=== PATIENT | female | born 1950 | race Caucasian/White ===

== ENCOUNTER 2022-12-11 03:36 | Inpatient (IN) | payer OTHER ==
[~2022-12-11] VITALS: Ht 175.3 cm; Wt 161.0 kg
[2022-12-11 03:36] VITALS: BP_SYST 135
[2022-12-11 04:24] LABS: BASOPHILS % (AUTO) 0.2 % (0.0-2.0); HEMATOCRIT 29.3 % (36-48); HEMOGLOBIN 9.2 g/dL (12.0-16.0); LYMPHOCYTES # (AUTO) 0.5 K/uL (1.0-5.5); LYMPHOCYTES % (AUTO) 4.1 % (20.5-51.5); MEAN CORPUSCULAR HEMOGLOBIN 26 pg (27-31); MEAN CORPUSCULAR HGB CONC 31 % (32-36); MEAN CORPUSCULAR VOLUME 84 fL (79.0-98.0); MONOCYTES # (AUTO) 0.6 K/uL (0.0-1.0); MONOCYTES % (AUTO) 5.1 % (1.7-9.3); NEUTROPHILS # (AUTO) 10.5 K/uL (1.8-7.7); NEUTROPHILS % (AUTO) 90.6 % (40.0-70.0); PLATELET COUNT (AUTO) 261 K/uL (130-430); RED BLOOD CELL COUNT(AUTO) 3.51 MIL/uL (4.2-6.2); RED CELL DISTRIBUTION WIDTH 18.8 % (9.0-15.0); WHITE BLOOD COUNT (AUTO) 11.6 K/uL (4.8-10.8)
[2022-12-11 04:37] LABS: ANION GAP 10 (5-15); CALCIUM 8.3 mg/dL (8.4-11.0); CHLORIDE 103 mmol/L (98-107); CREATININE 0.91 mg/dL (0.55-1.30); GLUCOSE 140 mg/dL (70-99); UREA NITROGEN, BLOOD 14 mg/dL (8-21)
[2022-12-11] MEDS ORDERED: FUROSEMIDE 40 MG/4 ML VIAL IVP ONE (04:45)
[2022-12-11 04:47] LABS: BILIRUBIN,URINE NEGATIVE (NEGATIVE); BLOOD, URINE NEGATIVE (NEGATIVE); CLARITY/URINE CLEAR (CLEAR); COLOR,URINE YELLOW (YELLOW); GLUCOSE,URINE NEGATIVE (NEGATIVE); KETONES,URINE NEGATIVE (NEGATIVE); LEUKOCYTE ESTERASE ,URINE NEGATIVE (NEGATIVE); NITRITE, URINE NEGATIVE (NEGATIVE); PROTEIN URINE 1+ (NEGATIVE); UROBILINOGEN,URINE 0.2 (0.2-1.0)
[2022-12-11 04:56] LABS: ALANINE AMINOTRANSFERASE 8 U/L (12-78); ASPARTATE AMINOTRANSFERASE 15 U/L (10-37); TOTAL BILIRUBIN 1.3 mg/dL (0.0-1.0)
[2022-12-11] MEDS ORDERED: ENOXAPARIN SODIUM 120 MG/0.8 ML SYRINGE SUBCUT ONE (05:00)
[2022-12-11 05:03] LABS: BACTERIA,URINE None Seen /HPF (None Seen); RBC,URINE 0-3 /HPF (0-3); WBC,URINE 0-3 /HPF (0-3)
[2022-12-11] MEDS ORDERED: SACU1TAB PO (06:05)
[2022-12-11] MEDS ORDERED: DABI150C PO (06:05)
[2022-12-11] MEDS ORDERED: TRAZ150T77 PO (06:05)
[2022-12-11] MEDS ORDERED: POTA-197 PO (06:05)
[2022-12-11] MEDS ORDERED: FURO-149 PO (06:05)
[2022-12-11] MEDS ORDERED: MIRT-92 PO (06:05)
[2022-12-11] MEDS ORDERED: SERT25TA PO (06:06)
[2022-12-11] MEDS ORDERED: HYDR-3927 PO (06:06)
[2022-12-11 06:33] VITALS: BP_SYST 116
[2022-12-11 08:00] VITALS: BP_SYST 129
[2022-12-11] MEDS ORDERED: ZOLPIDEM TARTRATE 5 MG TABLET PO PRN (09:00)
[2022-12-11] MEDS ORDERED: ACETAMINOPHEN 325 MG TABLET PO PRN (09:00)
[2022-12-11] MEDS ORDERED: MAGNESIUM SULFATE 50 ML IV PRN (09:00)
[2022-12-11] MEDS ORDERED: LORazepam 2 MG/ML VIAL IVP PRN (09:00)
[2022-12-11] MEDS ORDERED: IPRATROPIUM/ALBUTEROL SULFATE 3 ML AMPUL.NEB (DUONEB) INH PRN (09:00)
[2022-12-11] MEDS ORDERED: DOCUSATE SODIUM 100 MG CAPSULE PO PRN (09:00)
[2022-12-11] MEDS ORDERED: MUPIROCIN 2% TOPICAL OINTMENT 22 GM NS PRN (09:00)
[2022-12-11] MEDS ORDERED: ONDANSETRON HCL 4 MG/2 ML VIAL IVP PRN (09:00)
[2022-12-11] MEDS: SACUBITRIL/VALSARTAN 24 MG-26 MG 1 TABLET PO SCH ×2 (09:17→21:26)
[2022-12-11] MEDS: FUROSEMIDE 40 MG TABLET PO SCH (09:18)
[2022-12-11] MEDS: DABIGATRAN ETEXILATE MESYLATE 75 MG CAPSULE PO SCH (09:19)
[2022-12-11] MEDS: SERTRALINE HCL 50 MG TABLET PO SCH (09:20)
[2022-12-11] MEDS: traMADol HCL HCL 50 MG TABLET (ULTRAM) PO PRN ×2 (10:29→16:58)
[2022-12-11] MEDS: cefTRIAXone 1 GM in D5W 50 ML IV SCH (12:23)
[2022-12-11 12:51] VITALS: BP_SYST 155
[2022-12-11 17:00] VITALS: BP_SYST 98
[2022-12-11 19:45] VITALS: BP_SYST 110
[2022-12-11] MEDS: MIRTAZAPINE 15 MG TABLET PO SCH (21:24)
[2022-12-11] MEDS: traZODone HCL 50 MG TABLET (DESYREL) PO SCH (21:24)
[2022-12-12 03:51] VITALS: BP_SYST 101
[2022-12-12 05:38] LABS: BASOPHILS % (AUTO) 0.6 % (0.0-2.0); EOSINOPHILS # (AUTO) 0.1 K/uL (0.0-0.4); EOSINOPHILS % (AUTO) 1.2 % (0.0-4.0); HEMATOCRIT 27.6 % (36-48); HEMOGLOBIN 8.8 g/dL (12.0-16.0); LYMPHOCYTES # (AUTO) 0.9 K/uL (1.0-5.5); LYMPHOCYTES % (AUTO) 12.5 % (20.5-51.5); MEAN CORPUSCULAR HEMOGLOBIN 27 pg (27-31); MEAN CORPUSCULAR HGB CONC 32 % (32-36); MEAN CORPUSCULAR VOLUME 83 fL (79.0-98.0); MONOCYTES % (AUTO) 12.8 % (1.7-9.3); NEUTROPHILS # (AUTO) 5.5 K/uL (1.8-7.7); NEUTROPHILS % (AUTO) 72.9 % (40.0-70.0); PLATELET COUNT (AUTO) 222 K/uL (130-430); RED BLOOD CELL COUNT(AUTO) 3.32 MIL/uL (4.2-6.2); RED CELL DISTRIBUTION WIDTH 18.5 % (9.0-15.0); WHITE BLOOD COUNT (AUTO) 7.6 K/uL (4.8-10.8)
[2022-12-12 05:44] LABS: BARBITURATE, URINE NEGATIVE (NEG <=200); BENZODIAZEPINE, URINE NEGATIVE (NEG <=150); COCAINE, URINE NEGATIVE (NEG <=150); METHAMPHETAMINES SCREEN,URINE NEGATIVE (NEG <=500); PHENCYCLIDINE SCREEN,URINE NEGATIVE (NEG <=25); URINE AMPHETAMINE NEGATIVE (NEG <=500); URINE METHADONE NEGATIVE (NEG <=200); URINE OXYCODONE SCREEN NEGATIVE (NEG <=100); URINE PROPOXYPHENE SCREEN NEGATIVE (NEG <=300)
[2022-12-12 05:46] LABS: CANNABINOID, URINE POSITIVE (NEG <=50); OPIATE, URINE POSITIVE (NEG <=100); UR TRICYCLIC ANTIDEPRESSANTS NEGATIVE (NEG <=300)
[2022-12-12 06:03] LABS: ANION GAP 6 (5-15); CALCIUM 8.1 mg/dL (8.4-11.0); CHLORIDE 103 mmol/L (98-107); CREATININE 1.01 mg/dL (0.55-1.30); GLUCOSE 107 mg/dL (70-99); UREA NITROGEN, BLOOD 19 mg/dL (8-21)
[2022-12-12 06:23] LABS: ALANINE AMINOTRANSFERASE 10 U/L (12-78); ALBUMIN 2.6 g/dL (3.4-4.8); ASPARTATE AMINOTRANSFERASE 18 U/L (10-37); CHOLESTEROL 108 mg/dL (<200); HDL CHOLESTEROL 50 mg/dL (>55); TOTAL BILIRUBIN 1.1 mg/dL (0.0-1.0); TRIGLYCERIDES 50 mg/dL (30-150)
[2022-12-12 07:55] VITALS: BP_SYST 135
[2022-12-12] MEDS: SACUBITRIL/VALSARTAN 24 MG-26 MG 1 TABLET PO SCH ×2 (08:39→20:48)
[2022-12-12] MEDS: FUROSEMIDE 40 MG TABLET PO SCH ×2 (08:40→20:46)
[2022-12-12] MEDS: DABIGATRAN ETEXILATE MESYLATE 75 MG CAPSULE PO SCH (08:42)
[2022-12-12] MEDS: SERTRALINE HCL 50 MG TABLET PO SCH (09:00)
[2022-12-12] MEDS: POTASSIUM CHLORIDE 20 MEQ TAB.PRT.SR PO PRN ×2 (09:01→20:47)
[2022-12-12] MEDS: traMADol HCL HCL 50 MG TABLET (ULTRAM) PO PRN ×2 (09:19→22:24)
[2022-12-12] MEDS ORDERED: ALBMDI INH (09:25)
[2022-12-12] MEDS ORDERED: CEPH250C PO (09:25)
[2022-12-12] MEDS ORDERED: FURO-149 PO (09:53)
[2022-12-12 10:07] VITALS: BP_SYST 136
[2022-12-12] MEDS: cefTRIAXone 1 GM in D5W 50 ML IV SCH (11:56)
[2022-12-12 12:00] VITALS: BP_SYST 100
[2022-12-12 16:00] VITALS: BP_SYST 136
[2022-12-12 19:50] VITALS: BP_SYST 130
[2022-12-12] MEDS: MIRTAZAPINE 15 MG TABLET PO SCH (20:47)
[2022-12-12] MEDS: traZODone HCL 50 MG TABLET (DESYREL) PO SCH (20:47)
[2022-12-12] MEDS ORDERED: cefTRIAXone 1 GM in D5W 50 ML IV SCH (21:00)
[2022-12-13 01:00] VITALS: BP_SYST 126
[2022-12-13 08:21] VITALS: BP_SYST 163
[2022-12-13] MEDS: FUROSEMIDE 40 MG TABLET PO SCH (08:36)
[2022-12-13 08:39] LABS: ANION GAP 10 (5-15); CALCIUM 7.9 mg/dL (8.4-11.0); CHLORIDE 103 mmol/L (98-107); CREATININE 0.91 mg/dL (0.55-1.30); GLUCOSE 105 mg/dL (70-99); UREA NITROGEN, BLOOD 21 mg/dL (8-21)
[2022-12-13] MEDS: SACUBITRIL/VALSARTAN 24 MG-26 MG 1 TABLET PO SCH (08:43)
[2022-12-13] MEDS: SERTRALINE HCL 50 MG TABLET PO SCH (08:44)
[2022-12-13] MEDS: DABIGATRAN ETEXILATE MESYLATE 75 MG CAPSULE PO SCH (08:47)
[2022-12-13 10:44] VITALS: BP_SYST 109
[2022-12-13 12:00] VITALS: BP_SYST 135
[2022-12-13] MEDS ORDERED: DABIGATRAN ETEXILATE MESYLATE 75 MG CAPSULE PO SCH (21:00)
== END 2022-12-13 13:20 | disposition home or self-care (01) | DRG 871 ==
LOC: SED 03:36 → STU 05:47 → SMU 12-12 17:44 → STU 12-12 22:07 → SMU 12-13 10:18
PROVIDERS: ADMIT General Practice; ATTEND General Practice
PROC: 5A09357 Assistance with Respiratory Ventilation, Less than 24 Consecutive Hours, Continuous Positive Airway Pressure (ICD-10-PCS; principal; 2022-12-11)
PROC: 5A09357 Assistance with Respiratory Ventilation, Less than 24 Consecutive Hours, Continuous Positive Airway Pressure (ICD-10-PCS; 2022-12-12)
DX: A41.9 Sepsis, unspecified organism (principal); I21.A1 Myocardial infarction type 2; I50.43 Acute on chronic combined systolic (congestive) and diastolic (congestive) heart failure; L03.116 Cellulitis of left lower limb; Z68.43 Body mass index [BMI] 50.0-59.9, adult; I48.20 Chronic atrial fibrillation, unspecified; I13.0 Hypertensive heart and chronic kidney disease with heart failure and stage 1 through stage 4 chronic kidney disease, or unspecified chronic kidney disease; E46 Unspecified protein-calorie malnutrition; L97.929 Non-pressure chronic ulcer of unspecified part of left lower leg with unspecified severity; Z20.822 Contact with and (suspected) exposure to COVID-19; E66.01 Morbid (severe) obesity due to excess calories; G89.29 Other chronic pain; I87.8 Other specified disorders of veins; D63.8 Anemia in other chronic diseases classified elsewhere; N18.9 Chronic kidney disease, unspecified; F32.A Depression, unspecified; Z99.3 Dependence on wheelchair; Z88.5 Allergy status to narcotic agent; Z88.2 Allergy status to sulfonamides; Z88.8 Allergy status to other drugs, medicaments and biological substances; Z90.710 Acquired absence of both cervix and uterus; Z90.49 Acquired absence of other specified parts of digestive tract
CPT/HCPCS: 36415; 71045; 80048; 80053; 80061; 80307; 81000; 83037; 83735; 83880; 84484; 85025; 86886; 86900; 86901; 87040; 93005; 93306; 94660; 94760; 96365; 96372; 97110-GP; 97530-GP; 99291; G0378; J0696; J1650; J1940; J7060

== ENCOUNTER 2023-01-29 10:08 | Inpatient (IN) | payer OTHER ==
[~2023-01-29] VITALS: Ht 175.3 cm; Wt 169.6 kg
[~2023-01-29 10:08] MED LIST: ALBMDI INH; CEPH250C PO; DABI150C PO; FURO-149 PO; HYDR-3927 PO; MIRT-92 PO; POTA-197 PO; SACU1TAB PO; SERT25TA PO; TRAZ150T77 PO
[2023-01-29 10:19] VITALS: BP_SYST 159; PULSE 70; RESP 16; TEMP 97.6; O2SAT 98
[2023-01-29] MEDS ORDERED: ASPIRIN 81 MG TAB.CHEW PO ONE (10:30)
[2023-01-29 10:51] LABS: BASOPHILS % (AUTO) 0.6 % (0.0-2.0); EOSINOPHILS # (AUTO) 0.1 K/uL (0.0-0.4); HEMATOCRIT 33.6 % (36-48); HEMOGLOBIN 10.5 g/dL (12.0-16.0); LYMPHOCYTES # (AUTO) 0.5 K/uL (1.0-5.5); LYMPHOCYTES % (AUTO) 8.6 % (20.5-51.5); MEAN CORPUSCULAR HEMOGLOBIN 27 pg (27-31); MEAN CORPUSCULAR HGB CONC 31 % (32-36); MEAN CORPUSCULAR VOLUME 87 fL (79.0-98.0); MONOCYTES # (AUTO) 0.7 K/uL (0.0-1.0); MONOCYTES % (AUTO) 11.8 % (1.7-9.3); NEUTROPHILS # (AUTO) 4.7 K/uL (1.8-7.7); PLATELET COUNT (AUTO) 222 K/uL (130-430); RED BLOOD CELL COUNT(AUTO) 3.87 MIL/uL (4.2-6.2); RED CELL DISTRIBUTION WIDTH 19.8 % (9.0-15.0); WHITE BLOOD COUNT (AUTO) 6.1 K/uL (4.8-10.8)
[2023-01-29] MEDS ORDERED: ACETAMINOPHEN 500 MG TABLET PO ONE (11:00)
[2023-01-29 11:02] LABS: ANION GAP 9 (5-15); CALCIUM 8.2 mg/dL (8.4-11.0); CHLORIDE 103 mmol/L (98-107); CREATININE 0.94 mg/dL (0.55-1.30); GLUCOSE 109 mg/dL (70-99); UREA NITROGEN, BLOOD 17 mg/dL (8-21)
[2023-01-29 11:09] LABS: ALANINE AMINOTRANSFERASE 9 U/L (12-78); ALBUMIN 2.8 g/dL (3.4-4.8); ASPARTATE AMINOTRANSFERASE 12 U/L (10-37); TOTAL BILIRUBIN 1.1 mg/dL (0.0-1.0)
[2023-01-29] MEDS ORDERED: FUROSEMIDE 20 MG/2 ML VIAL IVP ONE (14:15)
[2023-01-29] MEDS ORDERED: IPRATROPIUM/ALBUTEROL SULFATE 3 ML AMPUL.NEB (DUONEB) INH PRN (14:30)
[2023-01-29 14:37] VITALS: BP_SYST 159; PULSE 70; O2SAT 98
[2023-01-29] MEDS ORDERED: FUROSEMIDE 40 MG/4 ML VIAL IVP ONE (15:30)
[2023-01-29] MEDS ORDERED: MORPHINE 4 MG INJ. 4 MG/ML VIAL IVP PRN (16:15)
[2023-01-29 16:55] VITALS: BP_SYST 150; PULSE 112; RESP 19; TEMP 97.6; O2SAT 96
[2023-01-29 17:01] VITALS: BP_SYST 150; PULSE 112; RESP 19; TEMP 97.6; O2SAT 96
[2023-01-29] MEDS ORDERED: DOCUSATE SODIUM 100 MG CAPSULE PO PRN (17:30)
[2023-01-29] MEDS ORDERED: ACETAMINOPHEN 325 MG TABLET PO PRN ×2 (17:30)
[2023-01-29] MEDS ORDERED: MAGNESIUM SULFATE 50 ML IV PRN (17:30)
[2023-01-29] MEDS ORDERED: MORPHINE 2 MG/ML INJ. SYRINGE IVP PRN (17:30)
[2023-01-29] MEDS ORDERED: ZOLPIDEM TARTRATE 5 MG TABLET PO PRN (17:30)
[2023-01-29] MEDS ORDERED: LORazepam 2 MG/ML VIAL IVP PRN (17:30)
[2023-01-29] MEDS ORDERED: POTASSIUM CHLORIDE 20 MEQ TAB.PRT.SR PO PRN (17:30)
[2023-01-29] MEDS ORDERED: NALOXONE HCL 0.4 MG/ML AMP (NARCAN) IVP PRN ×2 (17:30)
[2023-01-29] MEDS ORDERED: MUPIROCIN 2% TOPICAL OINTMENT 22 GM NS PRN (17:30)
[2023-01-29] MEDS ORDERED: ONDANSETRON HCL 4 MG/2 ML VIAL IVP PRN (17:30)
[2023-01-29] MEDS: NACL 0.9% 1,000 ML IV SCH (17:37)
[2023-01-29] MEDS: PIPERACILLIN/TAZO 3.375 GM in NS 50 ML IV SCH ×2 (17:38→23:45)
[2023-01-29] MEDS ORDERED: METOPROLOL TARTRATE 50 MG TABLET PO ONE (17:45)
[2023-01-29 20:00] VITALS: BP_SYST 111; BP_SYST 133; PULSE 77; PULSE 79; RESP 20; TEMP 96.5; O2SAT 100
[2023-01-29 21:30] VITALS: O2SAT 100
[2023-01-29] MEDS: traZODone HCL 50 MG TABLET (DESYREL) PO SCH (21:38)
[2023-01-29] MEDS: MIRTAZAPINE 15 MG TABLET PO SCH (21:38)
[2023-01-29] MEDS: DABIGATRAN ETEXILATE MESYLATE 75 MG CAPSULE PO SCH (21:39)
[2023-01-29] MEDS: MORPHINE 2 MG/ML INJ. SYRINGE IVP PRN (21:55)
[2023-01-30 01:18] VITALS: BP_SYST 138; PULSE 77; RESP 24; TEMP 98.1; O2SAT 96
[2023-01-30] MEDS: MORPHINE 2 MG/ML INJ. SYRINGE IVP PRN ×2 (03:12→14:11)
[2023-01-30 05:38] LABS: BASOPHILS % (AUTO) 0.4 % (0.0-2.0); EOSINOPHILS % (AUTO) 0.5 % (0.0-4.0); HEMATOCRIT 36.2 % (36-48); HEMOGLOBIN 11.2 g/dL (12.0-16.0); LYMPHOCYTES % (AUTO) 14.2 % (20.5-51.5); MEAN CORPUSCULAR HEMOGLOBIN 27 pg (27-31); MEAN CORPUSCULAR HGB CONC 31 % (32-36); MEAN CORPUSCULAR VOLUME 87 fL (79.0-98.0); MONOCYTES # (AUTO) 0.9 K/uL (0.0-1.0); MONOCYTES % (AUTO) 13.4 % (1.7-9.3); NEUTROPHILS # (AUTO) 4.9 K/uL (1.8-7.7); NEUTROPHILS % (AUTO) 71.5 % (40.0-70.0); PLATELET COUNT (AUTO) 241 K/uL (130-430); RED BLOOD CELL COUNT(AUTO) 4.17 MIL/uL (4.2-6.2); RED CELL DISTRIBUTION WIDTH 19.2 % (9.0-15.0); WHITE BLOOD COUNT (AUTO) 6.9 K/uL (4.8-10.8)
[2023-01-30 05:57] LABS: ANION GAP 12 (5-15); CALCIUM 8.4 mg/dL (8.4-11.0); CHLORIDE 105 mmol/L (98-107); CREATININE 1.12 mg/dL (0.55-1.30); GLUCOSE 104 mg/dL (70-99); UREA NITROGEN, BLOOD 22 mg/dL (8-21)
[2023-01-30] MEDS: NACL 0.9% 1,000 ML IV SCH (06:04)
[2023-01-30] MEDS: PIPERACILLIN/TAZO 3.375 GM in NS 50 ML IV SCH ×4 (06:04→23:05)
[2023-01-30 08:10] VITALS: BP_SYST 103; PULSE 78; RESP 18; TEMP 97; O2SAT 99
[2023-01-30] MEDS ORDERED: SACUBITRIL/VALSARTAN 24 MG-26 MG 1 TABLET PO SCH (09:00)
[2023-01-30] MEDS: SACUBITRIL/VALSARTAN 24 MG-26 MG 1 TABLET PO SCH ×2 (09:00→21:13)
[2023-01-30] MEDS ORDERED: DABIGATRAN ETEXILATE MESYLATE 75 MG CAPSULE PO SCH (09:00)
[2023-01-30] MEDS: DABIGATRAN ETEXILATE MESYLATE 75 MG CAPSULE PO SCH ×2 (09:25→21:13)
[2023-01-30] MEDS: SERTRALINE HCL 50 MG TABLET PO SCH (09:26)
[2023-01-30] MEDS: FUROSEMIDE 40 MG/4 ML VIAL IVP SCH (09:34)
[2023-01-30 12:07] VITALS: BP_SYST 119; PULSE 86; RESP 17; TEMP 97.9; O2SAT 99
[2023-01-30] MEDS ORDERED: iohexoL 350 mgI/mL, 100 ML INFUS..BTL IV ONE (14:24)
[2023-01-30 15:51] VITALS: BP_SYST 120; PULSE 80; RESP 18; TEMP 97.6; O2SAT 98
[2023-01-30 17:04] VITALS: BP_SYST 145; PULSE 66; RESP 18; TEMP 97.6; O2SAT 98
[2023-01-30 20:00] VITALS: BP_SYST 154; PULSE 103; RESP 18; TEMP 97.8; O2SAT 97
[2023-01-30] MEDS: MIRTAZAPINE 15 MG TABLET PO SCH (21:13)
[2023-01-30] MEDS: traZODone HCL 50 MG TABLET (DESYREL) PO SCH (21:13)
[2023-01-31] VITALS (7 sets, daily range): BP systolic 125–152; PULSE 68–109; RESP 18–20; TEMP 97–97.6; O2SAT 94–98
[2023-01-31] MEDS: PIPERACILLIN/TAZO 3.375 GM in NS 50 ML IV SCH ×2 (05:18→11:48)
[2023-01-31 06:26] LABS: BASOPHILS % (AUTO) 0.6 % (0.0-2.0); EOSINOPHILS # (AUTO) 0.2 K/uL (0.0-0.4); EOSINOPHILS % (AUTO) 3.5 % (0.0-4.0); HEMATOCRIT 34.4 % (36-48); HEMOGLOBIN 10.8 g/dL (12.0-16.0); LYMPHOCYTES # (AUTO) 1.2 K/uL (1.0-5.5); LYMPHOCYTES % (AUTO) 24.7 % (20.5-51.5); MEAN CORPUSCULAR HEMOGLOBIN 27 pg (27-31); MEAN CORPUSCULAR HGB CONC 31 % (32-36); MEAN CORPUSCULAR VOLUME 86 fL (79.0-98.0); MONOCYTES # (AUTO) 0.8 K/uL (0.0-1.0); MONOCYTES % (AUTO) 16.8 % (1.7-9.3); NEUTROPHILS # (AUTO) 2.6 K/uL (1.8-7.7); NEUTROPHILS % (AUTO) 54.4 % (40.0-70.0); PLATELET COUNT (AUTO) 200 K/uL (130-430); RED BLOOD CELL COUNT(AUTO) 3.99 MIL/uL (4.2-6.2); WHITE BLOOD COUNT (AUTO) 4.8 K/uL (4.8-10.8)
[2023-01-31 06:43] LABS: ANION GAP 9 (5-15); CALCIUM 7.8 mg/dL (8.4-11.0); CHLORIDE 106 mmol/L (98-107); CREATININE 1.03 mg/dL (0.55-1.30); GLUCOSE 94 mg/dL (70-99); UREA NITROGEN, BLOOD 21 mg/dL (8-21)
[2023-01-31] MEDS: DABIGATRAN ETEXILATE MESYLATE 75 MG CAPSULE PO SCH (09:35)
[2023-01-31] MEDS: SERTRALINE HCL 50 MG TABLET PO SCH (09:37)
[2023-01-31] MEDS: SACUBITRIL/VALSARTAN 24 MG-26 MG 1 TABLET PO SCH (09:37)
[2023-01-31] MEDS: FUROSEMIDE 40 MG/4 ML VIAL IVP SCH (09:38)
== END 2023-01-31 18:53 | disposition home health service (06) | DRG 291 ==
LOC: SED 10:08 → STU 14:14 → SMU 01-30 09:15
PROVIDERS: ADMIT General Practice; ATTEND General Practice
DX: I13.0 Hypertensive heart and chronic kidney disease with heart failure and stage 1 through stage 4 chronic kidney disease, or unspecified chronic kidney disease (principal); I50.43 Acute on chronic combined systolic (congestive) and diastolic (congestive) heart failure; J96.00 Acute respiratory failure, unspecified whether with hypoxia or hypercapnia; Z68.43 Body mass index [BMI] 50.0-59.9, adult; E44.0 Moderate protein-calorie malnutrition; I48.20 Chronic atrial fibrillation, unspecified; L97.929 Non-pressure chronic ulcer of unspecified part of left lower leg with unspecified severity; D63.8 Anemia in other chronic diseases classified elsewhere; G89.29 Other chronic pain; I25.5 Ischemic cardiomyopathy; I42.0 Dilated cardiomyopathy; I87.8 Other specified disorders of veins; F32.A Depression, unspecified; J44.9 Chronic obstructive pulmonary disease, unspecified; M19.90 Unspecified osteoarthritis, unspecified site; N18.9 Chronic kidney disease, unspecified; Z20.822 Contact with and (suspected) exposure to COVID-19; S39.92XA Unspecified injury of lower back, initial encounter; X58.XXXA Exposure to other specified factors, initial encounter; Y93.89 Activity, other specified; Y92.89 Other specified places as the place of occurrence of the external cause; Y99.8 Other external cause status; Z88.8 Allergy status to other drugs, medicaments and biological substances; Z79.01 Long term (current) use of anticoagulants; Z90.49 Acquired absence of other specified parts of digestive tract; Z90.710 Acquired absence of both cervix and uterus; Z99.3 Dependence on wheelchair; Z79.899 Other long term (current) drug therapy
CPT/HCPCS: 36415; 71045; 71260-TC; 72170-TC; 72192-TC; 73502; 76376; 80048; 80053; 83037; 83735; 83880; 84484; 85025; 87040; 87086; 93005; 94640; 94760; 96365; 96375; 99285; G0378; J1940; J1956; J2270; J2543; Q9967

== ENCOUNTER 2023-02-18 06:21 | Inpatient (IN) | payer OTHER ==
[2023-02-18] VITALS (9 sets, daily range): BP systolic 95–127; PULSE 85–99; RESP 16–22; TEMP 97.1–98.8; O2SAT 96–100
[~2023-02-18] VITALS: Ht 175.3 cm; Wt 166.0 kg
[2023-02-18] MEDS ORDERED: VANCOMYCIN HCL 1,000 MG in D5W 250 ML IV ONE (06:45)
[2023-02-18] MEDS ORDERED: PIPERACILLIN/TAZO 3.375 GM in D5W 50 ML IV ONE (06:45)
[2023-02-18 07:02] LABS: ANION GAP 6 (5-15); CALCIUM 8.2 mg/dL (8.4-11.0); CHLORIDE 101 mmol/L (98-107); CREATININE 1.28 mg/dL (0.55-1.30); GLUCOSE 94 mg/dL (70-99); UREA NITROGEN, BLOOD 23 mg/dL (8-21)
[2023-02-18 07:09] LABS: ALANINE AMINOTRANSFERASE 11 U/L (12-78); ALBUMIN 2.4 g/dL (3.4-4.8); ASPARTATE AMINOTRANSFERASE 12 U/L (10-37); BASOPHILS % (AUTO) 0.2 % (0.0-2.0); EOSINOPHILS % (AUTO) 0.3 % (0.0-4.0); HEMATOCRIT 34.8 % (36-48); HEMOGLOBIN 10.9 g/dL (12.0-16.0); LYMPHOCYTES # (AUTO) 0.6 K/uL (1.0-5.5); MEAN CORPUSCULAR HEMOGLOBIN 27 pg (27-31); MEAN CORPUSCULAR HGB CONC 31 % (32-36); MEAN CORPUSCULAR VOLUME 85 fL (79.0-98.0); MONOCYTES # (AUTO) 0.8 K/uL (0.0-1.0); MONOCYTES % (AUTO) 6.2 % (1.7-9.3); NEUTROPHILS # (AUTO) 11.1 K/uL (1.8-7.7); NEUTROPHILS % (AUTO) 88.3 % (40.0-70.0); PLATELET COUNT (AUTO) 201 K/uL (130-430); RED BLOOD CELL COUNT(AUTO) 4.08 MIL/uL (4.2-6.2); RED CELL DISTRIBUTION WIDTH 18.8 % (9.0-15.0); WHITE BLOOD COUNT (AUTO) 12.6 K/uL (4.8-10.8)
[2023-02-18] MEDS ORDERED: FUROSEMIDE 100 MG/10 ML VIAL IVP ONE (07:15)
[2023-02-18] MEDS ORDERED: PIPERACILLIN/TAZOBACTAM 3.375 GM/VIAL (ZOSYN) IV ONE (07:44)
[2023-02-18 08:11] LABS: BILIRUBIN,URINE 2+ (NEGATIVE); BLOOD, URINE NEGATIVE (NEGATIVE); CLARITY/URINE SL CLOUDY (CLEAR); COLOR,URINE ORANGE (YELLOW); GLUCOSE,URINE TRACE (NEGATIVE); KETONES,URINE TRACE (NEGATIVE); LEUKOCYTE ESTERASE ,URINE NEGATIVE (NEGATIVE); NITRITE, URINE POSITIVE (NEGATIVE); PROTEIN URINE 2+ (NEGATIVE)
[2023-02-18 08:24] LABS: BACTERIA,URINE MODERATE /HPF (None Seen); MUCUS,URINE 1+ /LPF (None Seen); RBC,URINE 0-3 /HPF (0-3); WBC,URINE 0-3 /HPF (0-3)
[2023-02-18] MEDS ORDERED: HYDROcodone/ACETAMIN 5-325 MG TAB (NORCO/ VICODIN) PO ONE (09:30)
[2023-02-18] MEDS ORDERED: DULO-76 (09:47)
[2023-02-18] MEDS ORDERED: TIMO1DRO5 (09:47)
[2023-02-18] MEDS ORDERED: LATA2.5D14 (09:47)
[2023-02-18] MEDS ORDERED: METO-540 (09:47)
[2023-02-18] MEDS ORDERED: FERR325T30 (09:47)
[2023-02-18] MEDS ORDERED: NALOXONE HCL 0.4 MG/ML AMP (NARCAN) IVP PRN (10:00)
[2023-02-18] MEDS ORDERED: POTASSIUM CHLORIDE 20 MEQ TAB.PRT.SR PO ONE (11:00)
[2023-02-18] MEDS ORDERED: DABIGATRAN ETEXILATE MESYLATE 75 MG CAPSULE PO ONE (11:00)
[2023-02-18] MEDS ORDERED: SERTRALINE HCL 50 MG TABLET PO ONE (11:00)
[2023-02-18] MEDS: ALBUTEROL SULFATE 0.083% 2.5 MG/3 ML VIAL.NEB INH PRN ×2 (12:01→23:29)
[2023-02-18] MEDS: traZODone HCL 50 MG TABLET (DESYREL) PO SCH (20:21)
[2023-02-18] MEDS: HYDROcodone/ACETAMIN 10-325 MG TAB PO PRN (20:22)
[2023-02-18] MEDS: FUROSEMIDE 40 MG TABLET PO SCH (20:22)
[2023-02-18] MEDS: METOPROLOL SUCCINATE 25 MG TAB.SR.24H (TOPROL XL) PO SCH (20:23)
[2023-02-19] VITALS (8 sets, daily range): BP systolic 103–123; PULSE 81–93; RESP 16–20; TEMP 97.7–98.1; O2SAT 96–100
[2023-02-19] MEDS: HYDROcodone/ACETAMIN 10-325 MG TAB PO PRN ×3 (03:46→23:48)
[2023-02-19 06:27] LABS: BASOPHILS % (AUTO) 0.2 % (0.0-2.0); EOSINOPHILS # (AUTO) 0.1 K/uL (0.0-0.4); EOSINOPHILS % (AUTO) 1.9 % (0.0-4.0); HEMATOCRIT 31.2 % (36-48); HEMOGLOBIN 10.5 g/dL (12.0-16.0); LYMPHOCYTES # (AUTO) 0.8 K/uL (1.0-5.5); LYMPHOCYTES % (AUTO) 11.3 % (20.5-51.5); MEAN CORPUSCULAR HEMOGLOBIN 28 pg (27-31); MEAN CORPUSCULAR HGB CONC 34 % (32-36); MEAN CORPUSCULAR VOLUME 84 fL (79.0-98.0); MONOCYTES # (AUTO) 0.8 K/uL (0.0-1.0); MONOCYTES % (AUTO) 11.5 % (1.7-9.3); NEUTROPHILS # (AUTO) 5.4 K/uL (1.8-7.7); NEUTROPHILS % (AUTO) 75.1 % (40.0-70.0); PLATELET COUNT (AUTO) 171 K/uL (130-430); RED BLOOD CELL COUNT(AUTO) 3.71 MIL/uL (4.2-6.2); RED CELL DISTRIBUTION WIDTH 18.4 % (9.0-15.0); WHITE BLOOD COUNT (AUTO) 7.2 K/uL (4.8-10.8)
[2023-02-19 07:00] LABS: ALANINE AMINOTRANSFERASE 6 U/L (12-78); ALBUMIN 2.2 g/dL (3.4-4.8); ANION GAP 8 (5-15); ASPARTATE AMINOTRANSFERASE 12 U/L (10-37); CALCIUM 7.9 mg/dL (8.4-11.0); CHLORIDE 101 mmol/L (98-107); CREATININE 1.21 mg/dL (0.55-1.30); FREE T4 (FREE THYROXINE) 1.2 ng/dl (0.8-1.5); GLUCOSE 100 mg/dL (74-106); THYROID STIMULATING HORMONE 7.09 uIu/mL (0.36-3.74); TOTAL BILIRUBIN 1.5 mg/dL (0.0-1.0); UREA NITROGEN, BLOOD 29 mg/dL (8-21)
[2023-02-19 07:08] LABS: TOTAL IRON BIND. CAPACITY 244 ug/dL (250-450)
[2023-02-19 08:06] LABS: HEPATITIS B CORE AB, TOTAL Negative (Negative); HEPATITIS C VIRUS AB Non Reactive (Non Reactive)
[2023-02-19] MEDS ORDERED: FERROUS SULFATE 325 MG TABLET.DR PO SCH (09:00)
[2023-02-19] MEDS: SACUBITRIL/VALSARTAN 24 MG-26 MG 1 TABLET PO SCH (10:16)
[2023-02-19] MEDS: FUROSEMIDE 40 MG TABLET PO SCH ×2 (10:18→20:34)
[2023-02-19] MEDS: SERTRALINE HCL 50 MG TABLET PO SCH (10:20)
[2023-02-19] MEDS: METOPROLOL SUCCINATE 25 MG TAB.SR.24H (TOPROL XL) PO SCH ×2 (10:22→20:33)
[2023-02-19] MEDS: DABIGATRAN ETEXILATE MESYLATE 75 MG CAPSULE PO SCH (10:23)
[2023-02-19] MEDS: POTASSIUM CHLORIDE 20 MEQ TAB.PRT.SR PO SCH (10:25)
[2023-02-19] MEDS: LATANOPROST 2.5 ML DROPS (XALATAN) BOTH EYES SCH (10:25)
[2023-02-19] MEDS: ALBUTEROL SULFATE 0.083% 2.5 MG/3 ML VIAL.NEB INH PRN ×2 (13:58→22:34)
[2023-02-19] MEDS: FERROUS GLUCONATE 324 MG TABLET PO SCH ×2 (16:08→20:32)
[2023-02-19] MEDS: traZODone HCL 50 MG TABLET (DESYREL) PO SCH (20:33)
[2023-02-19] MEDS: NYSTATIN 15 GM TOPICAL POWDER TP SCH (20:35)
[2023-02-19] MEDS: MULTIVITAMINS TAB 1 TABLET PO SCH (20:36)
[2023-02-20] VITALS (7 sets, daily range): BP systolic 100–126; PULSE 83–98; RESP 12–20; TEMP 97–98.2; O2SAT 96–100
[2023-02-20 05:52] LABS: BASOPHILS % (AUTO) 0.3 % (0.0-2.0); EOSINOPHILS # (AUTO) 0.2 K/uL (0.0-0.4); EOSINOPHILS % (AUTO) 3.5 % (0.0-4.0); HEMATOCRIT 30.9 % (36-48); LYMPHOCYTES # (AUTO) 0.8 K/uL (1.0-5.5); MEAN CORPUSCULAR HEMOGLOBIN 27 pg (27-31); MEAN CORPUSCULAR HGB CONC 32 % (32-36); MEAN CORPUSCULAR VOLUME 84 fL (79.0-98.0); MONOCYTES # (AUTO) 0.7 K/uL (0.0-1.0); MONOCYTES % (AUTO) 12.5 % (1.7-9.3); NEUTROPHILS # (AUTO) 3.7 K/uL (1.8-7.7); NEUTROPHILS % (AUTO) 68.7 % (40.0-70.0); PLATELET COUNT (AUTO) 185 K/uL (130-430); RED BLOOD CELL COUNT(AUTO) 3.68 MIL/uL (4.2-6.2); RED CELL DISTRIBUTION WIDTH 18.7 % (9.0-15.0); WHITE BLOOD COUNT (AUTO) 5.5 K/uL (4.8-10.8)
[2023-02-20 06:18] LABS: ALANINE AMINOTRANSFERASE 9 U/L (12-78); ALBUMIN 2.2 g/dL (3.4-4.8); ANION GAP 8 (5-15); ASPARTATE AMINOTRANSFERASE 11 U/L (10-37); CALCIUM 7.9 mg/dL (8.4-11.0); CHLORIDE 100 mmol/L (98-107); CREATININE 1.08 mg/dL (0.55-1.30); GLUCOSE 102 mg/dL (74-106); TOTAL BILIRUBIN 1.3 mg/dL (0.0-1.0); UREA NITROGEN, BLOOD 26 mg/dL (8-21)
[2023-02-20] MEDS: NYSTATIN 15 GM TOPICAL POWDER TP SCH ×2 (09:00→21:35)
[2023-02-20] MEDS: SACUBITRIL/VALSARTAN 24 MG-26 MG 1 TABLET PO SCH (09:07)
[2023-02-20] MEDS: DABIGATRAN ETEXILATE MESYLATE 75 MG CAPSULE PO SCH (09:11)
[2023-02-20] MEDS: POTASSIUM CHLORIDE 20 MEQ TAB.PRT.SR PO SCH (09:12)
[2023-02-20] MEDS: METOPROLOL SUCCINATE 25 MG TAB.SR.24H (TOPROL XL) PO SCH ×2 (09:12→21:34)
[2023-02-20] MEDS: FUROSEMIDE 40 MG TABLET PO SCH ×2 (09:13→21:34)
[2023-02-20] MEDS: MULTIVITAMINS TAB 1 TABLET PO SCH ×2 (09:13→21:34)
[2023-02-20] MEDS: LATANOPROST 2.5 ML DROPS (XALATAN) BOTH EYES SCH (09:13)
[2023-02-20] MEDS: FERROUS GLUCONATE 324 MG TABLET PO SCH ×3 (09:24→21:33)
[2023-02-20] MEDS: SERTRALINE HCL 50 MG TABLET PO SCH (09:24)
[2023-02-20 10:07] LABS: FOLATE (FOLIC ACID) 6.1 ng/mL (>3.0)
[2023-02-20] MEDS: BALSAM PERU/CASTOR OIL 56.7 GM OINT...G. TP SCH (11:39)
[2023-02-20] MEDS: HYDROcodone/ACETAMIN 10-325 MG TAB PO PRN ×2 (12:33→18:34)
[2023-02-20] MEDS ORDERED: BISACODYL 5 MG TABLET.DR (DULCOLAX) PO PRN (14:15)
[2023-02-20] MEDS ORDERED: LACTULOSE 20 GM/30 ML UDC PO ONE (14:15)
[2023-02-20] MEDS ORDERED: DOCUSATE SODIUM 250 MG CAPSULE PO ONE (14:15)
[2023-02-20] MEDS: LACTULOSE 20 GM/30 ML UDC PO SCH (21:33)
[2023-02-20] MEDS: traZODone HCL 50 MG TABLET (DESYREL) PO SCH (21:35)
[2023-02-20] MEDS: DOCUSATE SODIUM 250 MG CAPSULE PO SCH (21:35)
[2023-02-21] VITALS (9 sets, daily range): BP systolic 103–129; PULSE 62–98; RESP 16–20; TEMP 96.1–98.2; O2SAT 95–98
[2023-02-21 04:53] LABS: ANION GAP 5 (5-15); CALCIUM 8.1 mg/dL (8.4-11.0); CHLORIDE 100 mmol/L (98-107); CREATININE 0.92 mg/dL (0.55-1.30); GLUCOSE 110 mg/dL (74-106); UREA NITROGEN, BLOOD 17 mg/dL (8-21)
[2023-02-21] MEDS: ALBUTEROL SULFATE 0.083% 2.5 MG/3 ML VIAL.NEB INH PRN ×2 (05:13→22:50)
[2023-02-21] MEDS: LACTULOSE 20 GM/30 ML UDC PO SCH ×2 (09:00→22:15)
[2023-02-21] MEDS: DOCUSATE SODIUM 250 MG CAPSULE PO SCH ×2 (09:00→22:15)
[2023-02-21] MEDS ORDERED: DABIGATRAN ETEXILATE MESYLATE 75 MG CAPSULE PO SCH (09:00)
[2023-02-21] MEDS: FERROUS GLUCONATE 324 MG TABLET PO SCH ×3 (09:20→22:21)
[2023-02-21] MEDS: POTASSIUM CHLORIDE 20 MEQ TAB.PRT.SR PO SCH (09:20)
[2023-02-21] MEDS: MULTIVITAMINS TAB 1 TABLET PO SCH ×2 (09:20→22:17)
[2023-02-21] MEDS: SERTRALINE HCL 50 MG TABLET PO SCH (09:21)
[2023-02-21] MEDS: METOPROLOL SUCCINATE 25 MG TAB.SR.24H (TOPROL XL) PO SCH ×2 (09:22→22:18)
[2023-02-21] MEDS: FUROSEMIDE 40 MG TABLET PO SCH ×2 (09:25→22:22)
[2023-02-21] MEDS: LATANOPROST 2.5 ML DROPS (XALATAN) BOTH EYES SCH (09:25)
[2023-02-21] MEDS: BALSAM PERU/CASTOR OIL 56.7 GM OINT...G. TP SCH (09:26)
[2023-02-21] MEDS: SACUBITRIL/VALSARTAN 24 MG-26 MG 1 TABLET PO SCH ×2 (09:26→22:13)
[2023-02-21] MEDS: DABIGATRAN ETEXILATE MESYLATE 75 MG CAPSULE PO SCH ×2 (09:28→22:16)
[2023-02-21] MEDS: NYSTATIN 15 GM TOPICAL POWDER TP SCH ×2 (09:29→22:17)
[2023-02-21] MEDS: HYDROcodone/ACETAMIN 10-325 MG TAB PO PRN (16:50)
[2023-02-21] MEDS: traZODone HCL 50 MG TABLET (DESYREL) PO SCH (22:19)
[2023-02-22] VITALS (11 sets, daily range): BP systolic 106–126; PULSE 64–105; RESP 18–19; TEMP 96.7–97.5; O2SAT 95–98
[2023-02-22 06:37] LABS: ANION GAP 7 (5-15); CALCIUM 7.9 mg/dL (8.4-11.0); CHLORIDE 100 mmol/L (98-107); CREATININE 0.81 mg/dL (0.55-1.30); GLUCOSE 117 mg/dL (74-106); UREA NITROGEN, BLOOD 12 mg/dL (8-21)
[2023-02-22] MEDS: SERTRALINE HCL 50 MG TABLET PO SCH (08:47)
[2023-02-22] MEDS: MULTIVITAMINS TAB 1 TABLET PO SCH ×2 (08:48→21:20)
[2023-02-22] MEDS: FUROSEMIDE 40 MG TABLET PO SCH ×2 (08:48→21:19)
[2023-02-22] MEDS: FERROUS GLUCONATE 324 MG TABLET PO SCH ×3 (08:48→21:19)
[2023-02-22] MEDS: POTASSIUM CHLORIDE 20 MEQ TAB.PRT.SR PO SCH (08:48)
[2023-02-22] MEDS: LACTULOSE 20 GM/30 ML UDC PO SCH ×2 (08:49→21:00)
[2023-02-22] MEDS: METOPROLOL SUCCINATE 25 MG TAB.SR.24H (TOPROL XL) PO SCH ×2 (08:49→21:19)
[2023-02-22] MEDS: DOCUSATE SODIUM 250 MG CAPSULE PO SCH ×2 (08:50→21:19)
[2023-02-22] MEDS: DABIGATRAN ETEXILATE MESYLATE 75 MG CAPSULE PO SCH ×2 (08:55→21:30)
[2023-02-22] MEDS: SACUBITRIL/VALSARTAN 24 MG-26 MG 1 TABLET PO SCH ×2 (08:59→21:20)
[2023-02-22] MEDS: LATANOPROST 2.5 ML DROPS (XALATAN) BOTH EYES SCH (08:59)
[2023-02-22] MEDS: NYSTATIN 15 GM TOPICAL POWDER TP SCH ×2 (09:00→21:26)
[2023-02-22] MEDS: BALSAM PERU/CASTOR OIL 56.7 GM OINT...G. TP SCH (09:00)
[2023-02-22] MEDS ORDERED: metOLazone 2.5 MG TABLET PO ONE (10:00)
[2023-02-22] MEDS: ALBUTEROL SULFATE 0.083% 2.5 MG/3 ML VIAL.NEB INH PRN ×2 (10:51→18:45)
[2023-02-22] MEDS: HYDROcodone/ACETAMIN 10-325 MG TAB PO PRN ×2 (11:29→21:31)
[2023-02-22] MEDS: DOXYCYCLINE HYCLATE 100 MG CAPSULE PO SCH (21:19)
[2023-02-22] MEDS: traZODone HCL 50 MG TABLET (DESYREL) PO SCH (21:25)
[2023-02-23] VITALS (10 sets, daily range): BP systolic 119–126; PULSE 72–102; RESP 14–19; TEMP 97.1–97.8; O2SAT 97–99
[2023-02-23] MEDS: DABIGATRAN ETEXILATE MESYLATE 75 MG CAPSULE PO SCH ×2 (09:45→21:51)
[2023-02-23] MEDS: metOLazone 2.5 MG TABLET PO SCH (09:45)
[2023-02-23] MEDS: POTASSIUM CHLORIDE 20 MEQ TAB.PRT.SR PO SCH ×2 (09:46→21:48)
[2023-02-23] MEDS: FUROSEMIDE 40 MG TABLET PO SCH ×2 (09:46→21:49)
[2023-02-23] MEDS: METOPROLOL SUCCINATE 25 MG TAB.SR.24H (TOPROL XL) PO SCH ×2 (09:46→21:47)
[2023-02-23] MEDS: FERROUS GLUCONATE 324 MG TABLET PO SCH ×3 (09:46→21:49)
[2023-02-23] MEDS: DOCUSATE SODIUM 250 MG CAPSULE PO SCH ×2 (09:46→21:46)
[2023-02-23] MEDS: LACTULOSE 20 GM/30 ML UDC PO SCH ×2 (09:47→21:46)
[2023-02-23] MEDS: SACUBITRIL/VALSARTAN 24 MG-26 MG 1 TABLET PO SCH ×2 (09:47→21:49)
[2023-02-23] MEDS: MULTIVITAMINS TAB 1 TABLET PO SCH ×2 (09:47→21:48)
[2023-02-23] MEDS: LATANOPROST 2.5 ML DROPS (XALATAN) BOTH EYES SCH (09:48)
[2023-02-23] MEDS: BALSAM PERU/CASTOR OIL 56.7 GM OINT...G. TP SCH (09:48)
[2023-02-23] MEDS: NYSTATIN 15 GM TOPICAL POWDER TP SCH ×2 (09:48→21:53)
[2023-02-23] MEDS: SERTRALINE HCL 50 MG TABLET PO SCH (10:31)
[2023-02-23] MEDS: ALBUTEROL SULFATE 0.083% 2.5 MG/3 ML VIAL.NEB INH PRN ×2 (10:48→21:04)
[2023-02-23] MEDS: DOXYCYCLINE HYCLATE 100 MG CAPSULE PO SCH ×2 (10:49→22:00)
[2023-02-23] MEDS: HYDROcodone/ACETAMIN 10-325 MG TAB PO PRN (16:48)
[2023-02-23] MEDS: traZODone HCL 50 MG TABLET (DESYREL) PO SCH (21:47)
[2023-02-24 01:05] VITALS: BP_SYST 110; PULSE 82; RESP 18; TEMP 97; O2SAT 98
[2023-02-24] MEDS: HYDROcodone/ACETAMIN 10-325 MG TAB PO PRN ×2 (06:12→18:44)
[2023-02-24 06:25] LABS: ALANINE AMINOTRANSFERASE 9 U/L (12-78); ALBUMIN 2.2 g/dL (3.4-4.8); ANION GAP 7 (5-15); ASPARTATE AMINOTRANSFERASE 15 U/L (10-37); CALCIUM 7.7 mg/dL (8.4-11.0); CHLORIDE 100 mmol/L (98-107); CREATININE 0.97 mg/dL (0.55-1.30); GLUCOSE 88 mg/dL (74-106); UREA NITROGEN, BLOOD 15 mg/dL (8-21)
[2023-02-24 08:10] VITALS: BP_SYST 110; PULSE 93; RESP 12; TEMP 97; O2SAT 95
[2023-02-24 08:52] VITALS: O2SAT 98
[2023-02-24] MEDS: SACUBITRIL/VALSARTAN 24 MG-26 MG 1 TABLET PO SCH ×2 (10:14→20:45)
[2023-02-24] MEDS: DABIGATRAN ETEXILATE MESYLATE 75 MG CAPSULE PO SCH ×2 (10:17→20:33)
[2023-02-24] MEDS: POTASSIUM CHLORIDE 20 MEQ TAB.PRT.SR PO SCH ×2 (10:18→20:34)
[2023-02-24] MEDS: metOLazone 2.5 MG TABLET PO SCH (10:18)
[2023-02-24] MEDS: FERROUS GLUCONATE 324 MG TABLET PO SCH ×3 (10:18→20:35)
[2023-02-24] MEDS: DOCUSATE SODIUM 250 MG CAPSULE PO SCH ×2 (10:19→20:34)
[2023-02-24] MEDS: METOPROLOL SUCCINATE 25 MG TAB.SR.24H (TOPROL XL) PO SCH ×2 (10:19→20:35)
[2023-02-24] MEDS: DOXYCYCLINE HYCLATE 100 MG CAPSULE PO SCH ×2 (10:19→21:45)
[2023-02-24] MEDS: MULTIVITAMINS TAB 1 TABLET PO SCH ×2 (10:20→20:32)
[2023-02-24] MEDS: SERTRALINE HCL 50 MG TABLET PO SCH (10:20)
[2023-02-24] MEDS: LACTULOSE 20 GM/30 ML UDC PO SCH ×2 (10:21→20:40)
[2023-02-24] MEDS: FUROSEMIDE 40 MG TABLET PO SCH ×2 (10:21→20:35)
[2023-02-24] MEDS: NYSTATIN 15 GM TOPICAL POWDER TP SCH ×2 (10:22→20:46)
[2023-02-24] MEDS: BALSAM PERU/CASTOR OIL 56.7 GM OINT...G. TP SCH (10:23)
[2023-02-24] MEDS: LATANOPROST 2.5 ML DROPS (XALATAN) BOTH EYES SCH (10:23)
[2023-02-24 12:00] VITALS: BP_SYST 117; PULSE 91; RESP 18; TEMP 97.1; O2SAT 96
[2023-02-24 20:00] VITALS: BP_SYST 103; PULSE 74; RESP 16; TEMP 97.1; O2SAT 96; O2SAT 97
[2023-02-24] MEDS: traZODone HCL 50 MG TABLET (DESYREL) PO SCH (20:36)
[2023-02-24] MEDS: ALBUTEROL SULFATE 0.083% 2.5 MG/3 ML VIAL.NEB INH PRN (22:50)
[2023-02-24 23:51] VITALS: O2SAT 96
[2023-02-25] VITALS: BP_SYST 108; BP_SYST 128; PULSE 64; PULSE 92; RESP 18; TEMP 97.4; O2SAT 96
[2023-02-25] MEDS: HYDROcodone/ACETAMIN 10-325 MG TAB PO PRN ×2 (04:28→15:27)
[2023-02-25 04:36] LABS: BASOPHILS # (AUTO) 0.1 K/uL (0.0-0.2); BASOPHILS % (AUTO) 0.9 % (0.0-2.0); EOSINOPHILS # (AUTO) 0.3 K/uL (0.0-0.4); EOSINOPHILS % (AUTO) 4.3 % (0.0-4.0); HEMATOCRIT 38.6 % (36-48); HEMOGLOBIN 12.6 g/dL (12.0-16.0); LYMPHOCYTES # (AUTO) 0.9 K/uL (1.0-5.5); LYMPHOCYTES % (AUTO) 14.8 % (20.5-51.5); MEAN CORPUSCULAR HEMOGLOBIN 29 pg (27-31); MEAN CORPUSCULAR HGB CONC 33 % (32-36); MEAN CORPUSCULAR VOLUME 89 fL (79.0-98.0); MONOCYTES # (AUTO) 0.7 K/uL (0.0-1.0); MONOCYTES % (AUTO) 11.3 % (1.7-9.3); NEUTROPHILS # (AUTO) 4.1 K/uL (1.8-7.7); NEUTROPHILS % (AUTO) 68.7 % (40.0-70.0); PLATELET COUNT (AUTO) 240 K/uL (130-430); RED BLOOD CELL COUNT(AUTO) 4.33 MIL/uL (4.2-6.2); RED CELL DISTRIBUTION WIDTH 13.9 % (9.0-15.0)
[2023-02-25 04:57] LABS: ALANINE AMINOTRANSFERASE 20 U/L (12-78); ALBUMIN 3.1 g/dL (3.4-4.8); ANION GAP 10 (5-15); ASPARTATE AMINOTRANSFERASE 28 U/L (10-37); CALCIUM 8.9 mg/dL (8.4-11.0); CHLORIDE 105 mmol/L (98-107); GLUCOSE 97 mg/dL (74-106); TOTAL BILIRUBIN 0.3 mg/dL (0.0-1.0); UREA NITROGEN, BLOOD 17 mg/dL (8-21)
[2023-02-25 08:00] VITALS: BP_SYST 161; PULSE 84; RESP 15; TEMP 96.4; O2SAT 99
[2023-02-25] MEDS: LATANOPROST 2.5 ML DROPS (XALATAN) BOTH EYES SCH (08:49)
[2023-02-25] MEDS: SACUBITRIL/VALSARTAN 24 MG-26 MG 1 TABLET PO SCH ×2 (08:50→21:00)
[2023-02-25] MEDS: SERTRALINE HCL 50 MG TABLET PO SCH (08:50)
[2023-02-25] MEDS: metOLazone 2.5 MG TABLET PO SCH (08:51)
[2023-02-25] MEDS: DOCUSATE SODIUM 250 MG CAPSULE PO SCH ×2 (08:51→21:00)
[2023-02-25] MEDS: POTASSIUM CHLORIDE 20 MEQ TAB.PRT.SR PO SCH ×2 (08:51→21:00)
[2023-02-25] MEDS: MULTIVITAMINS TAB 1 TABLET PO SCH ×2 (08:51→21:00)
[2023-02-25] MEDS: DABIGATRAN ETEXILATE MESYLATE 75 MG CAPSULE PO SCH ×2 (08:53→21:00)
[2023-02-25] MEDS: FERROUS GLUCONATE 324 MG TABLET PO SCH ×3 (08:53→21:00)
[2023-02-25] MEDS: FUROSEMIDE 40 MG TABLET PO SCH ×2 (08:53→21:00)
[2023-02-25] MEDS: METOPROLOL SUCCINATE 25 MG TAB.SR.24H (TOPROL XL) PO SCH ×2 (08:54→21:00)
[2023-02-25] MEDS: LACTULOSE 20 GM/30 ML UDC PO SCH ×2 (08:59→21:00)
[2023-02-25] MEDS: NYSTATIN 15 GM TOPICAL POWDER TP SCH ×2 (09:04→21:00)
[2023-02-25] MEDS: BALSAM PERU/CASTOR OIL 56.7 GM OINT...G. TP SCH (09:05)
[2023-02-25] MEDS: DOXYCYCLINE HYCLATE 100 MG CAPSULE PO SCH ×2 (09:06→22:00)
[2023-02-25 11:30] VITALS: BP_SYST 90; PULSE 82; RESP 18; TEMP 97.9; O2SAT 98
[2023-02-25 13:10] VITALS: O2SAT 99
[2023-02-25 17:19] VITALS: BP_SYST 113; PULSE 84; RESP 17; TEMP 97.6; O2SAT 99
[2023-02-25 20:00] VITALS: O2SAT 98
[2023-02-25] MEDS: traZODone HCL 50 MG TABLET (DESYREL) PO SCH (21:00)
[2023-02-26 00:07] VITALS: BP_SYST 124; PULSE 94; RESP 18; TEMP 97.4; O2SAT 100
[2023-02-26] MEDS: HYDROcodone/ACETAMIN 10-325 MG TAB PO PRN ×3 (00:53→21:03)
[2023-02-26 08:00] VITALS: BP_SYST 118; PULSE 90; RESP 18; TEMP 97.7; O2SAT 96
[2023-02-26] MEDS: LACTULOSE 20 GM/30 ML UDC PO SCH ×2 (09:00→21:00)
[2023-02-26] MEDS: DOCUSATE SODIUM 250 MG CAPSULE PO SCH ×2 (09:00→21:00)
[2023-02-26] MEDS: BALSAM PERU/CASTOR OIL 56.7 GM OINT...G. TP SCH (09:09)
[2023-02-26] MEDS: LATANOPROST 2.5 ML DROPS (XALATAN) BOTH EYES SCH (09:11)
[2023-02-26] MEDS: DOXYCYCLINE HYCLATE 100 MG CAPSULE PO SCH ×2 (09:11→20:54)
[2023-02-26] MEDS: SACUBITRIL/VALSARTAN 24 MG-26 MG 1 TABLET PO SCH ×2 (09:11→22:59)
[2023-02-26] MEDS: metOLazone 2.5 MG TABLET PO SCH (09:11)
[2023-02-26] MEDS: FUROSEMIDE 40 MG TABLET PO SCH ×2 (09:12→22:59)
[2023-02-26] MEDS: MULTIVITAMINS TAB 1 TABLET PO SCH ×2 (09:12→20:54)
[2023-02-26] MEDS: FERROUS GLUCONATE 324 MG TABLET PO SCH ×3 (09:13→20:55)
[2023-02-26] MEDS: METOPROLOL SUCCINATE 25 MG TAB.SR.24H (TOPROL XL) PO SCH ×2 (09:13→22:59)
[2023-02-26] MEDS: POTASSIUM CHLORIDE 20 MEQ TAB.PRT.SR PO SCH ×2 (09:13→20:57)
[2023-02-26] MEDS: SERTRALINE HCL 50 MG TABLET PO SCH (09:14)
[2023-02-26] MEDS: DABIGATRAN ETEXILATE MESYLATE 75 MG CAPSULE PO SCH ×2 (09:14→20:55)
[2023-02-26] MEDS: NYSTATIN 15 GM TOPICAL POWDER TP SCH ×2 (09:15→23:00)
[2023-02-26] MEDS ORDERED: MULT400T13 PO (12:19)
[2023-02-26] MEDS ORDERED: METO2.5T6 PO (12:19)
[2023-02-26] MEDS ORDERED: DOXY100C5 PO (12:19)
[2023-02-26] MEDS ORDERED: Potassium Chloride PO (12:19)
[2023-02-26 12:35] VITALS: BP_SYST 120; PULSE 92; RESP 17; TEMP 97.5; O2SAT 97
[2023-02-26 16:00] VITALS: BP_SYST 119; PULSE 91; RESP 18; TEMP 97.6; O2SAT 96
[2023-02-26 20:25] VITALS: BP_SYST 116; PULSE 85; RESP 18; TEMP 98.1; O2SAT 97
[2023-02-26] MEDS: traZODone HCL 50 MG TABLET (DESYREL) PO SCH (20:54)
[2023-02-27] VITALS (7 sets, daily range): BP systolic 101–135; PULSE 92–97; RESP 18–20; TEMP 96.7–97.5; O2SAT 96–99
[2023-02-27] MEDS: LACTULOSE 20 GM/30 ML UDC PO SCH ×2 (09:00→21:31)
[2023-02-27] MEDS: DOCUSATE SODIUM 250 MG CAPSULE PO SCH ×2 (09:00→21:33)
[2023-02-27] MEDS: SACUBITRIL/VALSARTAN 24 MG-26 MG 1 TABLET PO SCH ×2 (09:46→21:32)
[2023-02-27] MEDS: LATANOPROST 2.5 ML DROPS (XALATAN) BOTH EYES SCH (09:47)
[2023-02-27] MEDS: METOPROLOL SUCCINATE 25 MG TAB.SR.24H (TOPROL XL) PO SCH ×2 (09:47→21:32)
[2023-02-27] MEDS: FUROSEMIDE 40 MG TABLET PO SCH ×2 (09:48→21:28)
[2023-02-27] MEDS: MULTIVITAMINS TAB 1 TABLET PO SCH ×2 (09:48→21:33)
[2023-02-27] MEDS: FERROUS GLUCONATE 324 MG TABLET PO SCH ×3 (09:48→21:28)
[2023-02-27] MEDS: DOXYCYCLINE HYCLATE 100 MG CAPSULE PO SCH ×2 (09:48→21:31)
[2023-02-27] MEDS: SERTRALINE HCL 50 MG TABLET PO SCH (09:48)
[2023-02-27] MEDS: POTASSIUM CHLORIDE 20 MEQ TAB.PRT.SR PO SCH ×2 (09:49→21:31)
[2023-02-27] MEDS: metOLazone 2.5 MG TABLET PO SCH (09:49)
[2023-02-27] MEDS: HYDROcodone/ACETAMIN 10-325 MG TAB PO PRN (09:50)
[2023-02-27] MEDS: BALSAM PERU/CASTOR OIL 56.7 GM OINT...G. TP SCH (09:51)
[2023-02-27] MEDS: NYSTATIN 15 GM TOPICAL POWDER TP SCH ×2 (09:51→21:33)
[2023-02-27] MEDS: DABIGATRAN ETEXILATE MESYLATE 75 MG CAPSULE PO SCH ×2 (09:53→21:30)
[2023-02-27] MEDS: ALBUTEROL SULFATE 0.083% 2.5 MG/3 ML VIAL.NEB INH PRN (20:49)
[2023-02-27] MEDS: traZODone HCL 50 MG TABLET (DESYREL) PO SCH (21:32)
[2023-02-28] VITALS: BP_SYST 106; PULSE 95; RESP 18; TEMP 97.8; O2SAT 98
[2023-02-28 04:00] VITALS: BP_SYST 101; PULSE 100; RESP 18; TEMP 97.1; O2SAT 100
[2023-02-28 08:00] VITALS: BP_SYST 112; PULSE 80; PULSE 81; RESP 18; TEMP 97.1; O2SAT 98
[2023-02-28] MEDS: LACTULOSE 20 GM/30 ML UDC PO SCH (09:00)
[2023-02-28 09:46] VITALS: O2SAT 98
[2023-02-28] MEDS: LATANOPROST 2.5 ML DROPS (XALATAN) BOTH EYES SCH (10:07)
[2023-02-28] MEDS: metOLazone 2.5 MG TABLET PO SCH (10:08)
[2023-02-28] MEDS: FERROUS GLUCONATE 324 MG TABLET PO SCH (10:08)
[2023-02-28] MEDS: DABIGATRAN ETEXILATE MESYLATE 75 MG CAPSULE PO SCH (10:10)
[2023-02-28] MEDS: POTASSIUM CHLORIDE 20 MEQ TAB.PRT.SR PO SCH (10:11)
[2023-02-28] MEDS: DOCUSATE SODIUM 250 MG CAPSULE PO SCH (10:11)
[2023-02-28] MEDS: MULTIVITAMINS TAB 1 TABLET PO SCH (10:12)
[2023-02-28] MEDS: SERTRALINE HCL 50 MG TABLET PO SCH (10:12)
[2023-02-28] MEDS: METOPROLOL SUCCINATE 25 MG TAB.SR.24H (TOPROL XL) PO SCH (10:13)
[2023-02-28] MEDS: DOXYCYCLINE HYCLATE 100 MG CAPSULE PO SCH (10:13)
[2023-02-28] MEDS: FUROSEMIDE 40 MG TABLET PO SCH (10:13)
[2023-02-28] MEDS: SACUBITRIL/VALSARTAN 24 MG-26 MG 1 TABLET PO SCH (10:14)
[2023-02-28] MEDS: NYSTATIN 15 GM TOPICAL POWDER TP SCH (10:16)
[2023-02-28] MEDS: BALSAM PERU/CASTOR OIL 56.7 GM OINT...G. TP SCH (10:18)
[2023-02-28 11:00] VITALS: BP_SYST 101; PULSE 73; RESP 18; TEMP 97.3; O2SAT 98
[2023-02-28 11:48] VITALS: BP_SYST 101; PULSE 73; RESP 18; TEMP 97.3; O2SAT 96
== END 2023-02-28 12:20 | DRG 299 ==
LOC: SED 06:21 → STU 08:08 → SMU 02-23 01:01
PROVIDERS: ADMIT Internal Medicine; ATTEND Internal Medicine
DX: I83.218 Varicose veins of right lower extremity with both ulcer of other part of lower extremity and inflammation (principal); E43 Unspecified severe protein-calorie malnutrition; I50.43 Acute on chronic combined systolic (congestive) and diastolic (congestive) heart failure; L97.819 Non-pressure chronic ulcer of other part of right lower leg with unspecified severity; N39.0 Urinary tract infection, site not specified; I48.20 Chronic atrial fibrillation, unspecified; Z68.43 Body mass index [BMI] 50.0-59.9, adult; L03.116 Cellulitis of left lower limb; L03.115 Cellulitis of right lower limb; I42.0 Dilated cardiomyopathy; L97.829 Non-pressure chronic ulcer of other part of left lower leg with unspecified severity; I83.228 Varicose veins of left lower extremity with both ulcer of other part of lower extremity and inflammation; I11.0 Hypertensive heart disease with heart failure; D64.9 Anemia, unspecified; I87.8 Other specified disorders of veins; E66.01 Morbid (severe) obesity due to excess calories; R73.03 Prediabetes; Z88.2 Allergy status to sulfonamides; Z88.8 Allergy status to other drugs, medicaments and biological substances; Z99.3 Dependence on wheelchair; Z90.710 Acquired absence of both cervix and uterus; Z90.49 Acquired absence of other specified parts of digestive tract; Z79.01 Long term (current) use of anticoagulants; Z59.01 Sheltered homelessness
CPT/HCPCS: 36415; 70450-TC; 71045; 76376; 80048; 80053; 81000; 82607; 82746; 83037; 83540; 83550; 83605; 83735; 83880; 84439; 84443; 84484; 85025; 86704; 86803; 87040; 87081; 87086; 93005; 93970; 94640; 94660; 94664; 94760; 96365; 96367; 96368; 96375; 97110-GP; 97530-GP; 99285; G0378; J1940; J1956; J2543; J7050; J7060; J7613

== ENCOUNTER 2023-03-20 07:30 | Inpatient (IN) | payer OTHER ==
[~2023-03-20] VITALS: Ht 175.3 cm; Wt 147.4 kg
[2023-03-20 07:30] VITALS: BP_SYST 105; PULSE 112; RESP 17; TEMP 99.4; O2SAT 95
[~2023-03-20 07:30] MED LIST changes: -CEPH250C PO; +DOXY100C5 PO; +DULO-76 PO; +FERR325T30; +LATA2.5D14 BOTH EYES; +METO-540; +METO2.5T6 PO; +MULT400T13 PO; +Potassium Chloride PO; +TIMO1DRO5 BOTH EYES
--- NOTE | 2023-03-20 07:30 | NUR ---
BROUGHT IN BY [facility] AND [facility]AGED, PLACED IN BED #5, REPORT GIVEN TO MADINA
--- NOTE | 2023-03-20 08:00 | NUR ---
Pt brought by Abi MARQUEZ&Ox4, pt presents to ER with weakness , N/V, pt states she may have an UTI since they removed a folley catheter yesterday, pt afebrile, VSS, respirations even and unlabored, cap refill <3.
--- NOTE | 2023-03-20 08:05 | NUR ---
Dr Lyle evaluating patient at bedside
[2023-03-20] MEDS ORDERED: NACL 0.9% 1,000 ML IV ONE ×2 (08:15→09:15)
[2023-03-20] MEDS ORDERED: ONDANSETRON HCL 4 MG/2 ML VIAL IVP ONE ×2 (08:15→09:15)
[2023-03-20 08:30] LABS: BASOPHILS % (AUTO) 0.1 % (0.0-2.0); HEMATOCRIT 35.4 % (36-48); HEMOGLOBIN 11.4 g/dL (12.0-16.0); LYMPHOCYTES # (AUTO) 0.5 K/uL (1.0-5.5); MEAN CORPUSCULAR HEMOGLOBIN 27 pg (27-31); MEAN CORPUSCULAR HGB CONC 32 % (32-36); MEAN CORPUSCULAR VOLUME 85 fL (79.0-98.0); MONOCYTES # (AUTO) 0.7 K/uL (0.0-1.0); MONOCYTES % (AUTO) 4.6 % (1.7-9.3); NEUTROPHILS % (AUTO) 92.3 % (40.0-70.0); PLATELET COUNT (AUTO) 182 K/uL (130-430); RED BLOOD CELL COUNT(AUTO) 4.15 MIL/uL (4.2-6.2); RED CELL DISTRIBUTION WIDTH 18.4 % (9.0-15.0); WHITE BLOOD COUNT (AUTO) 16.2 K/uL (4.8-10.8)
[2023-03-20 09:09] LABS: ANION GAP 9 (5-15); CALCIUM 8.5 mg/dL (8.4-11.0); CHLORIDE 97 mmol/L (98-107); CREATININE 1.08 mg/dL (0.55-1.30); GLUCOSE 123 mg/dL (74-106); UREA NITROGEN, BLOOD 13 mg/dL (8-21)
[2023-03-20] MEDS ORDERED: PIPERACILLIN/TAZO 3.375 GM in NS 50 ML IV ONE (09:15)
[2023-03-20] MEDS ORDERED: MORPHINE 4 MG INJ. 4 MG/ML VIAL IVP ONE (09:15)
[2023-03-20] MEDS ORDERED: NS 500 ML IV ONE (09:15)
[2023-03-20] MEDS ORDERED: PIPERACILLIN/TAZOBACTAM 3.375 GM/VIAL (ZOSYN) IV ONE (09:18)
[2023-03-20 09:28] LABS: ALANINE AMINOTRANSFERASE 4 U/L (12-78); ALBUMIN 2.9 g/dL (3.4-4.8); ASPARTATE AMINOTRANSFERASE 19 U/L (10-37); TOTAL BILIRUBIN 2.4 mg/dL (0.0-1.0)
--- NOTE | 2023-03-20 09:30 | NUR ---
Pt A&Ox4, medicated as ordered, VSS.
[2023-03-20 09:34] LABS: BILIRUBIN,URINE 2+ (NEGATIVE); BLOOD, URINE NEGATIVE (NEGATIVE); CLARITY/URINE CLEAR (CLEAR); COLOR,URINE YELLOW (YELLOW); GLUCOSE,URINE NEGATIVE (NEGATIVE); KETONES,URINE 1+ (NEGATIVE); LEUKOCYTE ESTERASE ,URINE NEGATIVE (NEGATIVE); NITRITE, URINE NEGATIVE (NEGATIVE); PH,URINE 5.5 (5.0-8.0); PROTEIN URINE 1+ (NEGATIVE)
[2023-03-20] MEDS ORDERED: NITROGLYCERIN 0.4 MG TAB.SUBL SL ONE (11:30)
[2023-03-20] MEDS ORDERED: FUROSEMIDE 40 MG/4 ML VIAL IVP ONE (11:30)
--- NOTE | 2023-03-20 11:41 | NUR ---
Pt medicated as ordered with Lasix, Nitro was not given due to low BP, Dr Lyle notified and agreeable.
--- NOTE | 2023-03-20 13:13 | NUR ---
Admit bed requested Patient will be admitted to care of [Nickolas]. Admitted to [Tele] unit. Diagnosis [CHF EXACERBATION] Inpatient (Yes or No) [YES] Observation (Yes or No) [NO] Orientation concerns or request close to nursing station (Yes or No) [NO] Covid Status [N/A] On vent or bipap [N/A] Isolation requirements [N/A] Needs a sitter [N/A] From Home (Yes or if No enter name of facility) [HOTEL] Requires Dialysis (Yes or No) [N/A] Med Rec Completed (Yes of No) [ ]
[2023-03-20] MEDS ORDERED: ONDANSETRON HCL 4 MG/2 ML VIAL IVP SCH (13:15)
[2023-03-20] MEDS ORDERED: MORPHINE 4 MG INJ. 4 MG/ML VIAL IVP SCH (13:15)
--- NOTE | 2023-03-20 13:18 | NUR ---
Pt A&Ox4, respirations even and unlabored, cap refill <3
--- NOTE | 2023-03-20 14:45 | NUR ---
Patient will be admitted to care of [Hakak]. Admitted to [Tele] unit. Will go to room [103B]. Belongings list completed. Complete and up to date summary report printed. SBAR report to be given at bedside with opportunity for questions.
[2023-03-20] MEDS ORDERED: NALOXONE HCL 0.4 MG/ML AMP (NARCAN) IVP PRN (16:45)
[2023-03-20] MEDS ORDERED: ALBUTEROL MDI INHALATION 8 GM INH INH PRN (16:45)
[2023-03-20] MEDS ORDERED: POTASSIUM CHLORIDE 20 MEQ TAB.PRT.SR PO ONE (16:45)
[2023-03-20 17:26] VITALS: BP_SYST 94; PULSE 92; RESP 20; TEMP 97.9
[2023-03-20] MEDS: DOXYCYCLINE HYCLATE 100 MG CAPSULE PO SCH (18:08)
[2023-03-20 19:00] VITALS: BP_SYST 96; PULSE 66; RESP 18; TEMP 97.4; O2SAT 98
[2023-03-20 20:00] VITALS: BP_SYST 96; PULSE 66; RESP 18; TEMP 97.4; O2SAT 98
[2023-03-20] MEDS: traZODone HCL 50 MG TABLET (DESYREL) PO SCH (21:00)
[2023-03-20] MEDS: MULTIVITAMINS TAB 1 TABLET PO SCH (21:00)
[2023-03-20] MEDS: SACUBITRIL/VALSARTAN 24 MG-26 MG 1 TABLET PO SCH (21:00)
[2023-03-20] MEDS: FUROSEMIDE 40 MG TABLET PO SCH (21:00)
[2023-03-21] VITALS (9 sets, daily range): BP systolic 84–115; PULSE 96–111; RESP 18–20; TEMP 96.7–97.5; O2SAT 93–100
[2023-03-21] MEDS: HYDROcodone/ACETAMIN 10-325 MG TAB PO PRN ×3 (01:18→21:08)
--- NOTE | 2023-03-21 01:27 | NUR ---
CONSULTATION PAGED/CALLED Reason for Consultation: CHF Person Who was Notified:NETO Consulting Physician: JARETT Dredge Pipe Operator Specialty: Ordering Physician: MELINDA
[2023-03-21] MEDS: DOXYCYCLINE HYCLATE 100 MG CAPSULE PO SCH ×2 (05:20→16:22)
[2023-03-21 06:05] LABS: BASOPHILS # (AUTO) 0.1 K/uL (0.0-0.2); EOSINOPHILS # (AUTO) 0.1 K/uL (0.0-0.4); EOSINOPHILS % (AUTO) 0.9 % (0.0-4.0); HEMATOCRIT 32.7 % (36-48); HEMOGLOBIN 10.4 g/dL (12.0-16.0); LYMPHOCYTES # (AUTO) 0.7 K/uL (1.0-5.5); LYMPHOCYTES % (AUTO) 8.1 % (20.5-51.5); MEAN CORPUSCULAR HEMOGLOBIN 27 pg (27-31); MEAN CORPUSCULAR HGB CONC 32 % (32-36); MEAN CORPUSCULAR VOLUME 86 fL (79.0-98.0); MONOCYTES # (AUTO) 0.6 K/uL (0.0-1.0); MONOCYTES % (AUTO) 7.1 % (1.7-9.3); NEUTROPHILS # (AUTO) 7.5 K/uL (1.8-7.7); NEUTROPHILS % (AUTO) 82.9 % (40.0-70.0); PLATELET COUNT (AUTO) 151 K/uL (130-430); RED CELL DISTRIBUTION WIDTH 18.4 % (9.0-15.0)
[2023-03-21 06:19] LABS: ANION GAP 6 (5-15); CALCIUM 7.7 mg/dL (8.4-11.0); CHLORIDE 99 mmol/L (98-107); CREATININE 1.39 mg/dL (0.55-1.30); GLUCOSE 83 mg/dL (74-106); UREA NITROGEN, BLOOD 22 mg/dL (8-21)
[2023-03-21 06:39] LABS: ALANINE AMINOTRANSFERASE 3 U/L (12-78); ALBUMIN 2.5 g/dL (3.4-4.8); ASPARTATE AMINOTRANSFERASE 21 U/L (10-37); TOTAL BILIRUBIN 1.7 mg/dL (0.0-1.0)
--- NOTE | 2023-03-21 08:00 | NUR ---
Initial notes Received patient sitting up in bed, no signs of distress noted IV to right forearm patent, all safety precaution secured, bed in low position, and call light w./in reached
[2023-03-21] MEDS: SACUBITRIL/VALSARTAN 24 MG-26 MG 1 TABLET PO SCH ×2 (08:49→21:13)
[2023-03-21] MEDS: POTASSIUM CHLORIDE 20 MEQ TAB.PRT.SR PO SCH (08:50)
[2023-03-21] MEDS: DABIGATRAN ETEXILATE MESYLATE 75 MG CAPSULE PO SCH (08:51)
[2023-03-21] MEDS: metOLazone 2.5 MG TABLET PO SCH (08:52)
[2023-03-21] MEDS: MULTIVITAMINS TAB 1 TABLET PO SCH ×2 (08:52→21:13)
[2023-03-21] MEDS: FUROSEMIDE 40 MG TABLET PO SCH ×2 (08:53→21:13)
[2023-03-21] MEDS: SERTRALINE HCL 50 MG TABLET PO SCH (08:54)
[2023-03-21] MEDS ORDERED: MORPHINE 4 MG INJ. 4 MG/ML VIAL IVP PRN (11:17)
--- NOTE | 2023-03-21 16:28 | NUR ---
New IV to right forearm #20g
[2023-03-21] MEDS: ALBUTEROL SULFATE 0.083% 2.5 MG/3 ML VIAL.NEB INH PRN ×2 (17:21→23:24)
--- NOTE | 2023-03-21 18:18 | NUR ---
Patient resting in bed eating dinner, no c/o pain/SOB, no signs of distress noted. All safety secured throughout shift, bed in low position and call light w/in reached, will endorsed
--- NOTE | 2023-03-21 19:30 | NUR ---
PT RECEIVED LYING IN BED IN SUPINE POSITION WITH HOB ELEVATED 30 DEGREES. A/OX4, CALM AND COOPERATIVE. T3 AFIB DENIES CHEST PAIN, PALPITATIONS AND DIZZINESS. PERIPHERAL PULSES PALPABLE, NO EDEMA. RESPIRATIONS EVEN UNLABORED, DIMINISHED, RA - 2LNC PRN, SPO2 93% RA, REPORTS SOB WITH EXERTION. BS ACTIVE, ABD SOFT AND ROUND, NON TENDER, DENIES N/V, LBM 03/20. VOIDS, PUREWICK IN PLACE, SHWETA URINE. BEDREST, ABLE TO SELF TURN. REPORTS LOWER BACK PAIN. SKIN INTACT. SL RFA 20G PATENT, NO COMPLICATIONS TO SITE. BED IN LOWEST POSITION, SIDE RAILS X2, CALL LIGHT WITHIN REACH
[2023-03-21] MEDS: traZODone HCL 50 MG TABLET (DESYREL) PO SCH (21:12)
[2023-03-21] MEDS: METOPROLOL SUCCINATE 25 MG TAB.SR.24H (TOPROL XL) PO SCH (21:12)
[2023-03-22] VITALS (7 sets, daily range): BP systolic 111–143; PULSE 95–103; RESP 17–18; TEMP 97.5–98.2; O2SAT 91–99
[2023-03-22] MEDS: DOXYCYCLINE HYCLATE 100 MG CAPSULE PO SCH ×2 (04:57→17:37)
[2023-03-22 06:18] LABS: BASOPHILS % (AUTO) 0.2 % (0.0-2.0); EOSINOPHILS # (AUTO) 0.2 K/uL (0.0-0.4); EOSINOPHILS % (AUTO) 2.8 % (0.0-4.0); HEMATOCRIT 33.7 % (36-48); HEMOGLOBIN 10.7 g/dL (12.0-16.0); LYMPHOCYTES # (AUTO) 0.4 K/uL (1.0-5.5); LYMPHOCYTES % (AUTO) 7.1 % (20.5-51.5); MEAN CORPUSCULAR HEMOGLOBIN 27 pg (27-31); MEAN CORPUSCULAR HGB CONC 32 % (32-36); MEAN CORPUSCULAR VOLUME 85 fL (79.0-98.0); MONOCYTES # (AUTO) 0.4 K/uL (0.0-1.0); MONOCYTES % (AUTO) 6.8 % (1.7-9.3); NEUTROPHILS # (AUTO) 5.1 K/uL (1.8-7.7); NEUTROPHILS % (AUTO) 83.1 % (40.0-70.0); PLATELET COUNT (AUTO) 159 K/uL (130-430); RED BLOOD CELL COUNT(AUTO) 3.95 MIL/uL (4.2-6.2); RED CELL DISTRIBUTION WIDTH 18.1 % (9.0-15.0); WHITE BLOOD COUNT (AUTO) 6.2 K/uL (4.8-10.8)
[2023-03-22] MEDS: HYDROcodone/ACETAMIN 10-325 MG TAB PO PRN (06:23)
--- NOTE | 2023-03-22 07:30 | NUR ---
Initial notes Received patient sitting up in bed, with head of bed elevated, c/o mild pain to bilateral legs, no signs of distress noted. On oxygen 2L NC 95%. IV to right forearm patent, all safety precaution secured, bed in low position, and call light w./in reached
[2023-03-22 07:39] LABS: ANION GAP 10 (5-15); CALCIUM 7.8 mg/dL (8.4-11.0); CHLORIDE 96 mmol/L (98-107); CREATININE 1.41 mg/dL (0.55-1.30); GLUCOSE 100 mg/dL (74-106); PHOSPHORUS 3.5 mg/dL (2.7-4.5); UREA NITROGEN, BLOOD 29 mg/dL (8-21)
[2023-03-22] MEDS: POTASSIUM CHLORIDE 20 MEQ TAB.PRT.SR PO SCH (09:00)
[2023-03-22] MEDS: metOLazone 2.5 MG TABLET PO SCH (09:02)
[2023-03-22] MEDS: DABIGATRAN ETEXILATE MESYLATE 75 MG CAPSULE PO SCH (09:04)
[2023-03-22] MEDS: MULTIVITAMINS TAB 1 TABLET PO SCH ×2 (09:05→21:00)
[2023-03-22] MEDS: FUROSEMIDE 40 MG TABLET PO SCH ×2 (09:06→21:38)
[2023-03-22] MEDS: METOPROLOL SUCCINATE 25 MG TAB.SR.24H (TOPROL XL) PO SCH ×2 (09:07→21:37)
[2023-03-22] MEDS: SERTRALINE HCL 50 MG TABLET PO SCH (09:07)
[2023-03-22] MEDS: SACUBITRIL/VALSARTAN 24 MG-26 MG 1 TABLET PO SCH ×2 (09:08→21:39)
[2023-03-22] MEDS ORDERED: MAGNESIUM SULFATE 1 GM/2 ML VIAL IVP ONE (10:15)
[2023-03-22] MEDS ORDERED: POTASSIUM CHLORIDE 20 MEQ/PKT PACKET PO ONE (10:15)
[2023-03-22] MEDS ORDERED: MAGNESIUM SULFATE 50 ML IV ONE (10:15)
--- NOTE | 2023-03-22 10:30 | NUR ---
Wound care to bilateral legs, clean with saline , pat dry applied gauze/ABD pads and Kerlix to left lower leg
--- NOTE | 2023-03-22 18:47 | NUR ---
Patient resting in bed, with HOB elevated. No c/o SOB , no signs of distress noted. Saline lock to right forearm intact, no signs of infiltration. Incontinent x3. Reposition self throughout shift, side railsx3, set bed alarm, bed in lowest position, all items/call light w/in reached
[2023-03-22] MEDS: traZODone HCL 50 MG TABLET (DESYREL) PO SCH (21:00)
[2023-03-23] VITALS (9 sets, daily range): BP systolic 107–120; PULSE 73–96; RESP 18–20; TEMP 97.9–99.1; O2SAT 96–100
[2023-03-23 05:12] LABS: BASOPHILS % (AUTO) 0.4 % (0.0-2.0); EOSINOPHILS % (AUTO) 0.3 % (0.0-4.0); HEMATOCRIT 33.9 % (36-48); HEMOGLOBIN 10.9 g/dL (12.0-16.0); LYMPHOCYTES # (AUTO) 0.5 K/uL (1.0-5.5); LYMPHOCYTES % (AUTO) 9.3 % (20.5-51.5); MEAN CORPUSCULAR HEMOGLOBIN 27 pg (27-31); MEAN CORPUSCULAR HGB CONC 32 % (32-36); MEAN CORPUSCULAR VOLUME 84 fL (79.0-98.0); MONOCYTES # (AUTO) 0.6 K/uL (0.0-1.0); MONOCYTES % (AUTO) 10.1 % (1.7-9.3); NEUTROPHILS # (AUTO) 4.4 K/uL (1.8-7.7); NEUTROPHILS % (AUTO) 79.9 % (40.0-70.0); PLATELET COUNT (AUTO) 144 K/uL (130-430); RED BLOOD CELL COUNT(AUTO) 4.02 MIL/uL (4.2-6.2); RED CELL DISTRIBUTION WIDTH 18.1 % (9.0-15.0); WHITE BLOOD COUNT (AUTO) 5.5 K/uL (4.8-10.8)
[2023-03-23 05:40] LABS: TOTAL IRON BIND. CAPACITY 232 ug/dL (250-450)
[2023-03-23 05:48] LABS: ALBUMIN 2.5 g/dL (3.4-4.8); ANION GAP 7 (5-15); ASPARTATE AMINOTRANSFERASE 19 U/L (10-37); CALCIUM 7.4 mg/dL (8.4-11.0); CHLORIDE 95 mmol/L (98-107); CREATININE 1.16 mg/dL (0.55-1.30); FREE T4 (FREE THYROXINE) 1.5 ng/dL (0.6-1.6); GLUCOSE 116 mg/dL (74-106); THYROID STIMULATING HORMONE 1.53 uIu/mL (0.34-4.82); TOTAL BILIRUBIN 1.7 mg/dL (0.0-1.0); UREA NITROGEN, BLOOD 29 mg/dL (8-21)
[2023-03-23 05:52] LABS: ALANINE AMINOTRANSFERASE < 5 U/L (12-78)
--- NOTE | 2023-03-23 06:13 | NUR ---
PAGED ABOUT PT'S CRITICAL POTASSIUM LEVEL OF 2.9
[2023-03-23] MEDS: DOXYCYCLINE HYCLATE 100 MG CAPSULE PO SCH ×2 (06:30→16:54)
[2023-03-23] MEDS ORDERED: POTASSIUM CHLORIDE 20 MEQ TAB.PRT.SR PO ONE ×2 (06:30→17:00)
--- NOTE | 2023-03-23 07:20 | NUR ---
MORNING NOTES Received pt. in bed, alert and verbally responsive. Vital signs taken, pt denies any pain or discomfort at this time, Fall precaution maintained. Side rails up for safety, bed alarm on, personal belongings and call light within reach.
[2023-03-23] MEDS: metOLazone 2.5 MG TABLET PO SCH (09:06)
[2023-03-23] MEDS: DABIGATRAN ETEXILATE MESYLATE 75 MG CAPSULE PO SCH (09:09)
[2023-03-23] MEDS: MULTIVITAMINS TAB 1 TABLET PO SCH ×2 (09:09→21:16)
[2023-03-23] MEDS: POTASSIUM CHLORIDE 20 MEQ TAB.PRT.SR PO SCH ×2 (09:10→21:44)
[2023-03-23] MEDS: METOPROLOL SUCCINATE 25 MG TAB.SR.24H (TOPROL XL) PO SCH ×2 (09:11→21:16)
[2023-03-23] MEDS: ALBUTEROL SULFATE 0.083% 2.5 MG/3 ML VIAL.NEB INH PRN (09:12)
[2023-03-23] MEDS: FUROSEMIDE 40 MG TABLET PO SCH ×2 (09:12→21:17)
[2023-03-23] MEDS: SERTRALINE HCL 50 MG TABLET PO SCH (09:13)
[2023-03-23] MEDS: SACUBITRIL/VALSARTAN 24 MG-26 MG 1 TABLET PO SCH ×2 (09:13→21:17)
[2023-03-23] MEDS: HYDROcodone/ACETAMIN 10-325 MG TAB PO PRN ×3 (09:38→22:59)
--- NOTE | 2023-03-23 11:29 | NUR ---
SENT PACKET TO ALEXANDRA AT [facility] FAX# [phone]. DAUGHTER STATED SHE DOES NOT WANT HER MOTHER TO RETURN TO [facility].
--- NOTE | 2023-03-23 12:05 | NUR ---
ROUNDING NOTES Pt complained of pain earlier, medication given and pt. verbalizes effectiveness. Vital signa stable, Fall precaution maintained. Side rails up for safety, Bed alarm on. Offered bedpan, pt voided twice. Personal belongings and call light within reach.
--- NOTE | 2023-03-23 19:00 | NUR ---
CLOSING NOTES Pt stable, no acute distress noted. Encouraged pt to call for help when she need help and never to attempt getting out of bed. Side rails up for safety. Call light within reach.
--- NOTE | 2023-03-23 19:45 | NUR ---
OPENING NOTE Patient laying in bed, awake and stable. No s/s of respiratory distress, breathing even and unlabored. No complaints of pain or discomfort at this time. Pt has oxygen running at 2L NC. Hygiene care provided. Plan of care for shift communicated with pt. Fall and safety precaution in place. Bed at lowest position, bed alarm on, and call light with in reach.
[2023-03-23] MEDS: traZODone HCL 50 MG TABLET (DESYREL) PO SCH (21:15)
--- NOTE | 2023-03-23 21:42 | NUR ---
RD Recommendations *Continue Cardiac Diet per MD Rx -Monitor BG for need for to modify diet *Recommend Jose Luis BID to help with wound healing. Monitor PO intakes, GI, skin, and labs Please refer to RD Assessment 03/23/23 for details MS SPICER RDN Addendum: 03/23/23 at [address] Amended: Links added.
[2023-03-24] VITALS (7 sets, daily range): BP systolic 99–138; PULSE 54–119; RESP 16–19; TEMP 97.7–99; O2SAT 91–99
--- NOTE | 2023-03-24 00:15 | NUR ---
ROUNDS Patient laying in bed with eyes closed. No s/s of respiratory distress, breathing even and unlabored. No complaints of pain or discomfort at this time. Pt has oxygen running at 2L NC. Fall and safety precaution in place. Bed at lowest position, bed alarm on, and call light with in reach.
[2023-03-24 04:55] LABS: BASOPHILS # (AUTO) 0.1 K/uL (0.0-0.2); BASOPHILS % (AUTO) 0.8 % (0.0-2.0); EOSINOPHILS # (AUTO) 0.1 K/uL (0.0-0.4); EOSINOPHILS % (AUTO) 1.4 % (0.0-4.0); HEMATOCRIT 36.3 % (36-48); HEMOGLOBIN 11.8 g/dL (12.0-16.0); LYMPHOCYTES # (AUTO) 0.8 K/uL (1.0-5.5); LYMPHOCYTES % (AUTO) 11.4 % (20.5-51.5); MEAN CORPUSCULAR HEMOGLOBIN 28 pg (27-31); MEAN CORPUSCULAR HGB CONC 33 % (32-36); MEAN CORPUSCULAR VOLUME 84 fL (79.0-98.0); MONOCYTES # (AUTO) 0.6 K/uL (0.0-1.0); MONOCYTES % (AUTO) 8.4 % (1.7-9.3); NEUTROPHILS # (AUTO) 5.7 K/uL (1.8-7.7); PLATELET COUNT (AUTO) 160 K/uL (130-430); RED BLOOD CELL COUNT(AUTO) 4.31 MIL/uL (4.2-6.2); RED CELL DISTRIBUTION WIDTH 17.9 % (9.0-15.0); WHITE BLOOD COUNT (AUTO) 7.3 K/uL (4.8-10.8)
--- NOTE | 2023-03-24 05:25 | NUR ---
ROUNDS Patient laying in bed, awake and stable. No s/s of respiratory distress, breathing even and unlabored. Pt has oxygen running at 2L NC. Hygiene care provided. No complaints of pain or discomfort at this time. Fall and safety precaution in place. Bed at lowest position, bed alarm on, and call light with in reach.
[2023-03-24] MEDS: DOXYCYCLINE HYCLATE 100 MG CAPSULE PO SCH ×2 (05:32→16:53)
[2023-03-24 05:34] LABS: ALANINE AMINOTRANSFERASE 12 U/L (12-78); ALBUMIN 2.6 g/dL (3.4-4.8); ANION GAP 6 (5-15); ASPARTATE AMINOTRANSFERASE 22 U/L (10-37); CALCIUM 7.7 mg/dL (8.4-11.0); CHLORIDE 95 mmol/L (98-107); CREATININE 1.31 mg/dL (0.55-1.30); GLUCOSE 98 mg/dL (74-106); TOTAL BILIRUBIN 1.7 mg/dL (0.0-1.0); UREA NITROGEN, BLOOD 41 mg/dL (8-21)
--- NOTE | 2023-03-24 07:28 | NUR ---
CLOSING NOTE Patient laying in bed, awake and stable. No s/s of respiratory distress, breathing even and unlabored. No complaints of pain or discomfort at this time. Pt has oxygen running at 2L NC. Fall and safety precaution in place. Bed at lowest position, bed alarm on, and call light with in reach.
--- NOTE | 2023-03-24 07:35 | NUR ---
MORNING NOTES Pt.received in bed,alert and verbal.Vital signs stable, pt. denies any pain or discomfort at this time. Bed alarm on,side rails up for safety. Personal belongings and call light within reach
[2023-03-24] MEDS: MULTIVITAMINS TAB 1 TABLET PO SCH ×2 (08:56→21:37)
[2023-03-24] MEDS: POTASSIUM CHLORIDE 20 MEQ TAB.PRT.SR PO SCH ×3 (08:56→21:37)
[2023-03-24] MEDS: METOPROLOL SUCCINATE 25 MG TAB.SR.24H (TOPROL XL) PO SCH ×2 (09:00→21:38)
[2023-03-24] MEDS: metOLazone 2.5 MG TABLET PO SCH (09:00)
[2023-03-24] MEDS: FUROSEMIDE 40 MG TABLET PO SCH ×2 (09:03→21:38)
[2023-03-24] MEDS: SERTRALINE HCL 50 MG TABLET PO SCH (09:04)
[2023-03-24] MEDS: HYDROcodone/ACETAMIN 10-325 MG TAB PO PRN ×2 (09:05→21:34)
[2023-03-24] MEDS: DABIGATRAN ETEXILATE MESYLATE 75 MG CAPSULE PO SCH (09:06)
[2023-03-24] MEDS: SACUBITRIL/VALSARTAN 24 MG-26 MG 1 TABLET PO SCH ×2 (09:06→21:43)
--- NOTE | 2023-03-24 11:03 | NUR ---
CM faxed DC referral packet to [facility] f#[phone] who had spoken with patient daughter regarding placement. [facility]
--- NOTE | 2023-03-24 13:05 | NUR ---
GUY NOTES Pt. has a possible discharge and she is upset that her daughter wants her to go to a snf instead of coming home to live with her and her grand kids. Encouraged pt.to verbalize fear, feelings,and concerns. Vital signs taken, routine medications given earlier and pt. tolerates well. Fall precaution maintained. Bed rails up for safety. HOB elevated 30 degrees. Bed alarm on. Personal belongings and call light within reach.
--- NOTE | 2023-03-24 13:46 | NUR ---
SULEMA spoke with Ana Lilia at [facility] who informs that [facility] declined the patient due to her daughter giving them an incorrect name for the patient. Ana Lilia has sent out packets to [facility], [facility], and the [facility] all who have declined placement for her. Ana Lilia will refer to the last 2 contracted facilities on her list: [facility] and [facility]. Ana Lilia informs that CM can refer patient to other SNFs and give an GURMEET to an accepting facility.
--- NOTE | 2023-03-24 14:30 | NUR ---
WOUND EVALUATION: Wound Consult received from Dr. Olmos. Thank you, Dr. Olmos, for the consult. Patient received in a Germán Bed with an Isoflex JESU mattress, awake, alert, confused. Patient is unable to turn independently. Kyree Score is a 12. Past Medical History: CHF, Dilated Cardiomyopathy, Chronic Lower Extremity Edema with ulcers, Morbid Obesity, Chronic Atrial Fibrillation, HTN, Chronic Kidney Disease, acute on chronic CHF, urinary tract infection, Ischemic CMP, Valvular Heart Disease, anticoagulation with Pradaxa, Morbid Obesity, Severe Protein Malnutrition, venous insufficiency of bilateral lower extremities with ulceration, Anemia, Prediabetic (HbgA1c = 5.8). Recent Labs: WBC 7.3, RBC 4.31, hemoglobin 11.8, hematocrit 36.3, sodium 132, chloride 95, CO2 31, BUN 41, creatinine 1.31, calcium 7.7, iron 12, TIBC 10/24/1933, % saturation 5, total bilirubin 1.7, albumin 2.6. Microbiology: MRSA screen results negative. Urine culture results negative. Blood culture results positive for gram positive rods Group G (G/LD). Intrinsic factors that delay wound healing: CHF, Dilated Cardiomyopathy, Chronic Lower Extremity Edema with ulcers, Morbid Obesity, Chronic Atrial Fibrillation, Chronic Kidney Disease, acute on chronic CHF, Valvular Heart Disease, Morbid Obesity, Severe Protein Malnutrition, venous insufficiency of bilateral lower extremities with ulceration, Anemia, Prediabetic (HbgA1c = 5.8). Extrinsic factors that delay wound healing: Decreased mobility. Wound Assessment: 1. Left Lateral Lower Extremity, distal 3: Venous insufficiency ulcer, present on admission. Wound bed has 60% yellow slough, 20% red tissue, 20% black tissue. No odor, scant yellow drainage. Periwound intact. Circumference of mid leg/calf has dark discolored skin with dry scaly skin present. Extremity has moderate non-pitting, non-weeping edema. Wound measures 7.6 cm x 1.9 cm. 2. Left Mid Posterior Calf: Venous insufficiency ulcer, horseshoe shaped, present on admission. Wound bed has 80% yellow slough, 20% red tissue. No odor, scant yellow drainage. Periwound intact. Circumference of mid leg/calf has dark discolored skin with dry scaly skin present. Extremity has moderate non-pitting, non-weeping edema. Wound measures 17.4 cm x 8.4 cm. Recommend: Cleanse wounds with normal saline. Apply moisture barrier cream to antonia-wounds. Apply Thera-honey gel to wound beds. Cover with Thera-honey dressing sheets, cut to size. Cover with non-adhesive foam dressings. Apply Eucerin cream to bilateral lower extremities. Wrap with Charlene wrap from just above toes to just below knee. Wrap with elastic bandage from just above toes to just below knee. Perform wound care daily, and as needed for dressing soiling or dislodgement. Also recommend: Encourage and assist patient with repositioning every 2 hours with pillow support and off-load pressure areas with pillows for pressure re-distribution. Elevate bilateral lower extremities as tolerated. Encourage 30 ankle pumps per hour bilaterally while awake. Perform skin care and monitor skin integrity Q shift. Use moisture barrier cream on buttocks and other moisture susceptible areas QID and as needed for soiling. Initiate low air-loss therapy by adding an air pump to the low air-loss mattress.
--- NOTE | 2023-03-24 15:11 | NUR ---
PHYSICAL THERAPY CO-SIGN The Physical Therapy Progress Notes documented by Rail Detector Car Operator have been reviewed. Reviewed/Co-Signed by: Luis Fernando Starkey Documentation Done by:PATSY MOSES Addendum: 03/24/23 at 1511 by Luis Fernando Starkey PT Amended: Links added.
--- NOTE | 2023-03-24 15:41 | NUR ---
Patient daughter Elsie called to notify that this patient is agreeable to go to [facility] again. [facility] contacted and will accept patient and initiate an GURMEET. [facility] to update when they have a bed available.
--- NOTE | 2023-03-24 16:12 | NUR ---
SULEMA recieved a phone call from Ana Lilia at [facility] informing the this patient is no longer approved for a SNF. The certified medical coder said she is at her baseline after leaving [facility]. They will authorize for home health PT only. CM to notify
[2023-03-24] MEDS ORDERED: HONEY WOUND DRESSING 1 EACH TP PRN (17:45)
--- NOTE | 2023-03-24 18:52 | NUR ---
CLOSING NOTES Pt. stable, no signs of distress noted. wound care done earlier, pt tolerates well. Dev Manager rails up x 2 for safety. Call light within reach
--- NOTE | 2023-03-24 19:45 | NUR ---
PT AAOX4, NO DISTRESS NOTED, C/O BACK DISCOMFORT REPOSITIONED PT. LUNG SOUNDS CLEAR. O2 2L SAT 97%. BRUISING NOTED TO BUE. IV TO RFA SITE CDI. PUREWICK IN PLACE. DRSG TO LLE CDI. DRYNESS NOTED TO RLE. CALL LIGHT WITHIN REACH. BED IN LOW POSITION, BED ALARM ON.
[2023-03-24] MEDS: traZODone HCL 50 MG TABLET (DESYREL) PO SCH (21:38)
[2023-03-25] VITALS (8 sets, daily range): BP systolic 94–128; PULSE 84–104; RESP 18–20; TEMP 97.2–98.8; O2SAT 94–98
[2023-03-25] MEDS: DOXYCYCLINE HYCLATE 100 MG CAPSULE PO SCH ×2 (06:18→18:08)
[2023-03-25] MEDS: HYDROcodone/ACETAMIN 10-325 MG TAB PO PRN ×3 (07:01→18:08)
[2023-03-25 07:57] LABS: ALANINE AMINOTRANSFERASE 2 U/L (12-78); ALBUMIN 2.2 g/dL (3.4-4.8); ANION GAP 8 (5-15); ASPARTATE AMINOTRANSFERASE 17 U/L (10-37); CALCIUM 7.9 mg/dL (8.4-11.0); CHLORIDE 94 mmol/L (98-107); CREATININE 1.05 mg/dL (0.55-1.30); GLUCOSE 93 mg/dL (74-106); TOTAL BILIRUBIN 1.8 mg/dL (0.0-1.0); UREA NITROGEN, BLOOD 40 mg/dL (8-21)
--- NOTE | 2023-03-25 08:00 | NUR ---
Initial notes Alert, unable to ambulate, incontinent of bowel and bladder. Pain is control at this time. will monitor.
[2023-03-25] MEDS: FUROSEMIDE 40 MG TABLET PO SCH ×2 (08:50→22:33)
[2023-03-25] MEDS: POTASSIUM CHLORIDE 20 MEQ TAB.PRT.SR PO SCH ×2 (08:50→22:34)
[2023-03-25] MEDS: metOLazone 2.5 MG TABLET PO SCH (08:51)
[2023-03-25] MEDS: MULTIVITAMINS TAB 1 TABLET PO SCH ×2 (08:51→22:33)
[2023-03-25] MEDS: DABIGATRAN ETEXILATE MESYLATE 75 MG CAPSULE PO SCH (08:52)
[2023-03-25] MEDS: SACUBITRIL/VALSARTAN 24 MG-26 MG 1 TABLET PO SCH ×2 (08:53→22:34)
[2023-03-25] MEDS: METOPROLOL SUCCINATE 25 MG TAB.SR.24H (TOPROL XL) PO SCH ×2 (08:53→22:33)
[2023-03-25] MEDS: SERTRALINE HCL 50 MG TABLET PO SCH (08:53)
[2023-03-25] MEDS: HONEY WOUND DRESSING 1 EACH TP SCH (08:54)
--- NOTE | 2023-03-25 11:00 | NUR ---
Notes- resting, no distress noted.
--- NOTE | 2023-03-25 12:47 | NUR ---
Ana Lilia verdugo [facility] received HH order. is looking for HH placement. asking if there are any DME orders needed. will follow up
--- NOTE | 2023-03-25 15:13 | NUR ---
PHYSICAL THERAPY CO-SIGN The Physical Therapy Progress Notes documented by Pelota Maker have been reviewed. Reviewed/Co-Signed by: Luis Fernando Starkey Documentation Done by:PATSY MOSES Addendum: 03/25/23 at 1513 by Luis Fernando Starkey PT Amended: Links added.
--- NOTE | 2023-03-25 15:23 | NUR ---
CM follow up phone call to Roxanne verdugo [facility] regarding DME Cam[facility] lift. left VM with cb #. will follow up
--- NOTE | 2023-03-25 16:04 | NUR ---
Attempted to reaqch insurance [employer], Ambrosioroxanne-marie [phone] as well a Roxanne [phone], both are case mgrs, asking for a call back for f/up on HH/PT as well as laila left.
--- NOTE | 2023-03-25 16:18 | NUR ---
Barrier to discharge. patient has been refusing to work with PT as far as being able to sit to stand for bed to WC transfer. Daughter states that she has used WC transportation before by using the patient's own WC as it is a larger WC. Daughter is agreeable to bring her own WC to facilitate WC transportation home. Daughter states she cant take her home if the patient cannot stand for transfers and that she works everyday. CM consulted SW for assistance with this barrier
--- NOTE | 2023-03-25 16:45 | NUR ---
Public Works Supervisor: Telephone call made to the dtr, Elsie, to discuss the barriers that are presenting itself regarding the patient's current discharge order. per dtr, she can only bring the patient home if the patient is able to transfer. The dtr states that the patient requires more care then what she can offer as she is working student driving instructor and is not able to be home with her. The dtr states just recently she was able to get the patient's sister involved to help. I inquired about the patient's finances and what she can do to contribute to her own care. I discussed assisted living facilities, board and care placements, and private in home care. I also inquired about the patient going to the dtr's home for a short period of time, or the dtr staying with the patient minimally when she is not at work, and bring in some form of care. The dtr was resistant to options and was stating she "really just hoped she could go to a assisted facility". After much discussion, the dtr indicated she would be in to continuous pickling line pickler her mother lynn when she got off of work at 6p. I advised CHARITY Suarez and CHARITY Alva of the conversation and the dtr's plan to come and get the patient this evening. I also provided the dtr with a discharge planning referral for an agency that assists with various senior needs once the patient is in the community. In formation left for the dtr at bedside.
--- NOTE | 2023-03-25 17:00 | NUR ---
ROUNDS- Dr bae here and informed patient is not able to ambulate. Trying to contact daughter but unable to.
[2023-03-25] MEDS ORDERED: POTASSIUM CHLORIDE 20 MEQ TAB.PRT.SR PO ONE (17:45)
--- NOTE | 2023-03-25 18:53 | NUR ---
PAGED Daughter here to pickle water pump operator patient. Addendum: 03/25/23 at 1918 by Roxanne Whitley RN Called and spoke to Dr. Olmos about discharge order.
--- NOTE | 2023-03-25 19:30 | NUR ---
OPENING NOTE Patient laying in bed, awake and stable. Daughter at bedside. No s/s of respiratory distress, breathing even and unlabored. No complaints of pain or discomfort at this time. Hygiene care provided. Plan of care for shift communicated with pt. Fall and safety precaution in place. Bed at lowest position, bed alarm on, and call light with in reach.
--- NOTE | 2023-03-25 20:30 | NUR ---
BARRIER Pt able to move to edge of bed without assist, but then refuses to move further. Pt states "I'm tired, lets take a break." Waited for a few minutes, informed pt to use siderails to hold and place left leg down the side of the bed. Pt states "I can't." Assisted pt with moving left leg down and asked pt to try to transfer to wheelchair. Pt states "I'm tired, let me rest a minute." Waited a few minutes, asked pt to try again, and pt states "okay don't help me." Daughter states "Mom they are trying to help you because you need it right now." Attempted to assist pt with 3 people to wheelchair, pt states "I can't my legs are weak." Pt is unwilling to move from edge of bed. Will notify primary MD.
--- NOTE | 2023-03-25 20:51 | NUR ---
NOTIFIED MD LAWRENCE notified and aware that pt cannot stand up, unable to transfer to wheelchair even with 3 assists, and pt's daughter is the only person at home. MD LAWRENCE stated "She needs to go to a SNF, but she refused. Daughter said she would take her home, so what can we do. Just hold her tonight."
[2023-03-25] MEDS: traZODone HCL 50 MG TABLET (DESYREL) PO SCH (22:28)
[2023-03-26] VITALS (7 sets, daily range): BP systolic 85–145; PULSE 53–68; RESP 18–20; TEMP 96.7–97.9; O2SAT 95–100
--- NOTE | 2023-03-26 00:40 | NUR ---
ROUNDS Patient laying in bed, with eyes closed. No s/s of respiratory distress, breathing even and unlabored. No complaints of pain or discomfort at this time. Asked pt how she was doing. Pt stated "Im okay thank you." Fall and safety precaution in place. Bed at lowest position, bed alarm on, and call light with in reach.
[2023-03-26] MEDS: HYDROcodone/ACETAMIN 10-325 MG TAB PO PRN ×2 (00:58→23:30)
--- NOTE | 2023-03-26 04:40 | NUR ---
ROUNDS Patient laying in bed, with eyes closed. No s/s of respiratory distress, breathing even and unlabored. No complaints of pain or discomfort at this time. Fall and safety precaution in place. Bed at lowest position, bed alarm on, and call light with in reach.
[2023-03-26] MEDS: DOXYCYCLINE HYCLATE 100 MG CAPSULE PO SCH ×2 (05:29→16:21)
[2023-03-26 05:43] LABS: BASOPHILS % (AUTO) 0.2 % (0.0-2.0); EOSINOPHILS # (AUTO) 0.1 K/uL (0.0-0.4); EOSINOPHILS % (AUTO) 1.4 % (0.0-4.0); HEMATOCRIT 34.7 % (36-48); HEMOGLOBIN 11.1 g/dL (12.0-16.0); LYMPHOCYTES # (AUTO) 1.1 K/uL (1.0-5.5); LYMPHOCYTES % (AUTO) 12.5 % (20.5-51.5); MEAN CORPUSCULAR HEMOGLOBIN 27 pg (27-31); MEAN CORPUSCULAR HGB CONC 32 % (32-36); MEAN CORPUSCULAR VOLUME 84 fL (79.0-98.0); MONOCYTES % (AUTO) 11.6 % (1.7-9.3); NEUTROPHILS # (AUTO) 6.3 K/uL (1.8-7.7); NEUTROPHILS % (AUTO) 74.3 % (40.0-70.0); PLATELET COUNT (AUTO) 127 K/uL (130-430); RED BLOOD CELL COUNT(AUTO) 4.14 MIL/uL (4.2-6.2); RED CELL DISTRIBUTION WIDTH 18.2 % (9.0-15.0); WHITE BLOOD COUNT (AUTO) 8.5 K/uL (4.8-10.8)
[2023-03-26 06:27] LABS: ALANINE AMINOTRANSFERASE 2 U/L (12-78); ALBUMIN 2.2 g/dL (3.4-4.8); ANION GAP 6 (5-15); ASPARTATE AMINOTRANSFERASE 17 U/L (10-37); CALCIUM 8.3 mg/dL (8.4-11.0); CHLORIDE 94 mmol/L (98-107); CREATININE 0.99 mg/dL (0.55-1.30); GLUCOSE 94 mg/dL (74-106); TOTAL BILIRUBIN 1.8 mg/dL (0.0-1.0); UREA NITROGEN, BLOOD 42 mg/dL (8-21)
--- NOTE | 2023-03-26 06:30 | NUR ---
CLOSING NOTE Patient laying in bed, awake and stable. No s/s of respiratory distress, breathing even and unlabored. Pt asked if she could get her [place]. Informed pt that her norco was not due yet and it will be endorsed to day shift. Pt stated "I think I want to call the police, I think I am being kidnapped. I want to go home." Informed pt that she was suppose to be discharged last night, but she was unable to transfer to wheelchair and it was unsafe for her to be discharged. Pt stated that "yeah you guys didn't help me." Informed pt that 3 people had tried to assist her, but she was unable to transfer over. Pt stated "yeah whatever." All needs met throughout shift. Fall and safety precautions in place. Bed at lowest position, bed alarm on, and call light within reach.
--- NOTE | 2023-03-26 07:59 | NUR ---
OPENING NOTES: RECEIVED BEDSIDE SBAR FROM PM SHIFT NURSE, NO S/S OF ANY DISTRESS, NON LABOR BREATHING, BED AT LOW AND LOCKED POSITION, ALL SAFETY CHECKS DONE, FALL RISK PRECAUTIONS IN PROGRESS, CALL LIGHT IN REACH, ABLE TO MAKE NEEDS KNOWN, PATIENT RESTING IN BED EATING WATCHING TV, WILL CONT TO MONITOR PATIENT THOUGHT THE DAY.
[2023-03-26] MEDS: FUROSEMIDE 40 MG TABLET PO SCH ×2 (09:11→20:52)
[2023-03-26] MEDS: METOPROLOL SUCCINATE 25 MG TAB.SR.24H (TOPROL XL) PO SCH ×2 (09:12→20:51)
[2023-03-26] MEDS: MULTIVITAMINS TAB 1 TABLET PO SCH ×2 (09:12→20:51)
[2023-03-26] MEDS: metOLazone 2.5 MG TABLET PO SCH (09:12)
[2023-03-26] MEDS: POTASSIUM CHLORIDE 20 MEQ TAB.PRT.SR PO SCH ×3 (09:12→20:52)
[2023-03-26] MEDS: SACUBITRIL/VALSARTAN 24 MG-26 MG 1 TABLET PO SCH ×2 (09:13→20:52)
[2023-03-26] MEDS: DABIGATRAN ETEXILATE MESYLATE 75 MG CAPSULE PO SCH (09:16)
[2023-03-26] MEDS: SERTRALINE HCL 50 MG TABLET PO SCH (09:17)
[2023-03-26] MEDS: HONEY WOUND DRESSING 1 EACH TP SCH (09:17)
--- NOTE | 2023-03-26 11:30 | NUR ---
[facility]. unable to leave .
--- NOTE | 2023-03-26 12:15 | NUR ---
CM attempt to reach [facility] Roxanne Sung and Renee at [employer] by telephone unsuccessful; left VM with CB #
--- NOTE | 2023-03-26 13:52 | NUR ---
CM attempt to call Ana Lilia at [facility] unsuccessful; unable to leave .
--- NOTE | 2023-03-26 15:00 | NUR ---
SULEMA received a phone call from Renee from [employer] who informs that there system had crashed today and they are now backed up. Renee gave a temp auth to obtain a laila lift from [facility]. [id number]. SULEMA called and gave them temp auth; they informed that there is a scheduled delivery of a Laila lift to the patient hotel room today between 3:30 and 5pm. SULEMA and SW to coordinate a transfer home
--- NOTE | 2023-03-26 15:16 | NUR ---
PHYSICAL THERAPY CO-SIGN The Physical Therapy Progress Notes documented by Shoe Cementer have been reviewed. Reviewed/Co-Signed by: Luis Fernando Starkey Documentation Done by:PATSY MOSES Addendum: 03/26/23 at 1516 by Luis Fernando Starkey PT Amended: Links added.
--- NOTE | 2023-03-26 16:04 | NUR ---
Junior Designer CARDIO TECH met with CM re. pts. discharge barriers. Transportation: Pt. is stating she is unable to transfer to a wheel chair once discharged. Transportation for a bariatric transport will be over $800. The pt. need a laila lift and CM has not been able to reach anyone at [employer] re. approval and if They ordred one. The pts. Dtr. will need to be present at the time of delivery of DME so the company can show dtr. how to use it and have dtr. use laila with pt. to get her transferred. CARDIO TECH introduced self to pt. who appeared frustrated stating she does want to leave the hospital, but is unable to use her leg as it is weak and cant walk on it. PT has met with pt. earlier and pt. stated she can slip into the WC. PT felt this was unsafe and did not have pt. demonstrate her transfer. Pt. does not met criteria for SNF as pt is at her baseline as per CM. CARDIO TECH reached out to Dtr. Elsie, , who stated she can't afford the transportation fee of $800. Dtr did state she can go to the mot to meet the company who is dropping off the DME, laila lift by 5pm today. field sales agent is working on the auth from [facility] to cover the ambulance fee to transport [facility]. Ambulance transfer cost and time TBD. CARDIO TECH will remain available.
--- NOTE | 2023-03-26 17:09 | NUR ---
S/w patient's dtr Elsie, made her aware that this time only that the hospital will cover the cost of transport as patient is non-ambulatory . Explained that transportation will be set up for 03/27/23.
--- NOTE | 2023-03-26 18:42 | NUR ---
CLOSING NOTES: PATIENT REMAINED STABLE THOUGHT OUT THE DAY NO S/S OF ANY DISTRESS BED AT LOCKED AND LOW POSITION CALL LIGHT IN REACH, ALL FALL RISK MEASURE IN PLACE, WILL GIVE PM SHIFT NURSE BEDSIDE SBAR.
--- NOTE | 2023-03-26 19:30 | NUR ---
OPENING NOTE Patient laying in bed, awake and stable. Daughter at bedside. No s/s of respiratory distress, breathing even and unlabored. No complaints of pain or discomfort at this time. Plan of care for shift communicated with pt. Fall and safety precaution in place. Bed at lowest position, bed alarm on, and call light with in reach.
[2023-03-26] MEDS: traZODone HCL 50 MG TABLET (DESYREL) PO SCH (20:51)
--- NOTE | 2023-03-26 20:55 | NUR ---
MD NOTIFIED MD LAWRENCE notified and aware of pt's increased confusion and agitation. MD ordered labs CBC, CMP, and AMMONIA.
[2023-03-26 22:21] LABS: BASOPHILS # (AUTO) 0.1 K/uL (0.0-0.2); BASOPHILS % (AUTO) 0.6 % (0.0-2.0); EOSINOPHILS # (AUTO) 0.2 K/uL (0.0-0.4); EOSINOPHILS % (AUTO) 2.4 % (0.0-4.0); HEMATOCRIT 35.4 % (36-48); HEMOGLOBIN 11.4 g/dL (12.0-16.0); LYMPHOCYTES # (AUTO) 0.9 K/uL (1.0-5.5); LYMPHOCYTES % (AUTO) 10.5 % (20.5-51.5); MEAN CORPUSCULAR HEMOGLOBIN 27 pg (27-31); MEAN CORPUSCULAR HGB CONC 32 % (32-36); MEAN CORPUSCULAR VOLUME 83 fL (79.0-98.0); MONOCYTES # (AUTO) 0.8 K/uL (0.0-1.0); MONOCYTES % (AUTO) 9.2 % (1.7-9.3); NEUTROPHILS # (AUTO) 6.9 K/uL (1.8-7.7); NEUTROPHILS % (AUTO) 77.3 % (40.0-70.0); PLATELET COUNT (AUTO) 132 K/uL (130-430); RED BLOOD CELL COUNT(AUTO) 4.25 MIL/uL (4.2-6.2); RED CELL DISTRIBUTION WIDTH 18.4 % (9.0-15.0); WHITE BLOOD COUNT (AUTO) 8.9 K/uL (4.8-10.8)
[2023-03-26 22:44] LABS: ANION GAP 6 (5-15); ASPARTATE AMINOTRANSFERASE 18 U/L (10-37); CHLORIDE 95 mmol/L (98-107); CREATININE 1.44 mg/dL (0.55-1.30); GLUCOSE 101 mg/dL (74-106); TOTAL BILIRUBIN 1.7 mg/dL (0.0-1.0); UREA NITROGEN, BLOOD 47 mg/dL (8-21)
[2023-03-26 22:58] LABS: ALANINE AMINOTRANSFERASE 2 U/L (12-78)
[2023-03-27 00:37] VITALS: BP_SYST 91; PULSE 88; RESP 18; TEMP 97.1; O2SAT 97
[2023-03-27] MEDS: DOXYCYCLINE HYCLATE 100 MG CAPSULE PO SCH (04:45)
--- NOTE | 2023-03-27 06:43 | NUR ---
MEDICATIONS FOUND Notified by [employer] that she saw pt with white medication bottle. Notified Charge, went to check pt belongings, found medication, and removed. Notified Charge of findings, asked pt how many ibuprofen she has taken. Pt stated "I took 2." Informed pt that she cannot have medications at bedside as she takes other medications that could interact with. Requested to check pt's belongings for any other medications, pt refused stating "it is my right." Informed pt that she cannot have medication at bedside due to possible interactions. Security was called, Charge was at bedside, 3 people present. Went through pt's belongings and found; Coricidin (2 tabs), loperamide HCL (6 tabs), ibuprofen (16 caps), afrin nasal spray (1), and oxymetazoline (1). Pt stated "I'm getting these back right" Informed pt that medications will go into the "Patient's own medication" envelope and will stay in pharmacy, when she gets discharged she will get them back. Counted amount of medication with patient, placed into envelope, and sealed. Pt stated "[place], how come I cannot keep my medication, I am going to right down your names, and complain." Pt refused to sign "Patient's own medications" envelope.
[2023-03-27 07:29] VITALS: PULSE 109; O2SAT 97
--- NOTE | 2023-03-27 07:44 | NUR ---
FAMILY NOTIFY ATTEMPT Called daughter, Elsie, twice to inform of medications found but there was no answer. Unable to leave voicemail as it was not set up.
--- NOTE | 2023-03-27 07:47 | NUR ---
OPENING NOTE Patient laying in bed, awake and stable. No s/s of respiratory distress, breathing even and unlabored. No complaints of pain or discomfort at this time. Fall and safety precaution in place. Bed at lowest position, bed alarm on, and call light with in reach.
[2023-03-27] MEDS: POTASSIUM CHLORIDE 20 MEQ TAB.PRT.SR PO SCH (08:44)
[2023-03-27] MEDS: SERTRALINE HCL 50 MG TABLET PO SCH (08:45)
[2023-03-27] MEDS: FUROSEMIDE 40 MG TABLET PO SCH (08:45)
[2023-03-27] MEDS: MULTIVITAMINS TAB 1 TABLET PO SCH (08:45)
[2023-03-27] MEDS: SACUBITRIL/VALSARTAN 24 MG-26 MG 1 TABLET PO SCH (08:45)
[2023-03-27] MEDS: METOPROLOL SUCCINATE 25 MG TAB.SR.24H (TOPROL XL) PO SCH (08:46)
[2023-03-27] MEDS: metOLazone 2.5 MG TABLET PO SCH (08:47)
[2023-03-27] MEDS: HONEY WOUND DRESSING 1 EACH TP SCH (08:47)
[2023-03-27] MEDS: DABIGATRAN ETEXILATE MESYLATE 75 MG CAPSULE PO SCH (08:50)
[2023-03-27] MEDS ORDERED: NS 500 ML IV ONE (09:00)
[2023-03-27 10:15] VITALS: O2SAT 96
--- NOTE | 2023-03-27 10:42 | NUR ---
MRS BURNS WILL BE PICKED UP BETWEEN 1230 AND 1PM TO BE TAKEN TO HER MOTEL. MEDIC IT WILL BE A BARIATRIC TRANSPORTATION
[2023-03-27] MEDS: HYDROcodone/ACETAMIN 10-325 MG TAB PO PRN (11:01)
--- NOTE | 2023-03-27 11:06 | NUR ---
Just s/w patient's dtr Elsie, made her aware that patient will be leaving today at approx 1230 back to their current residence.
--- NOTE | 2023-03-27 13:20 | NUR ---
D/C Patient Patient given medication reconciliation form and D/C instructions. Exit Care provided. Patient verbalized understanding. MD discussed with patient the results and treatment provided. Ambulatory with steady gait for discharge to home. Patient in stable condition, ID band removed. IV catheter removed, intact and dressing applied, no active bleeding. NO Rx given. Patient educated on pain management. All belongings sent with patient AND DAUGHTER
== END 2023-03-27 13:20 | disposition home health service (06) | DRG 280 ==
LOC: SED 07:30 → STU 13:10 → SMU 03-25 23:31
PROVIDERS: ADMIT Internal Medicine; ATTEND Internal Medicine
DX: I11.0 Hypertensive heart disease with heart failure (principal); I21.A1 Myocardial infarction type 2; I50.43 Acute on chronic combined systolic (congestive) and diastolic (congestive) heart failure; I48.20 Chronic atrial fibrillation, unspecified; L03.116 Cellulitis of left lower limb; E44.0 Moderate protein-calorie malnutrition; Z68.42 Body mass index [BMI] 45.0-49.9, adult; E87.6 Hypokalemia; I25.5 Ischemic cardiomyopathy; I87.8 Other specified disorders of veins; K57.90 Diverticulosis of intestine, part unspecified, without perforation or abscess without bleeding; K74.60 Unspecified cirrhosis of liver; D63.8 Anemia in other chronic diseases classified elsewhere; Z59.01 Sheltered homelessness; Z79.01 Long term (current) use of anticoagulants; Z90.49 Acquired absence of other specified parts of digestive tract; Z90.710 Acquired absence of both cervix and uterus; Z88.2 Allergy status to sulfonamides
CPT/HCPCS: 36415; 71045; 76376; 80048; 80053; 81003; 82140; 82607; 83540; 83550; 83605; 83735; 83880; 84100; 84439; 84443; 84484; 85025; 87040; 87081; 87086; 93005; 94640; 94760; 96361; 96365; 96375; 97110-GP; 97163-GP; 97530-GP; 99285; G0378; J1940; J2270; J2405; J2543; J3475; J7050; J7613

== ENCOUNTER 2023-03-30 21:49 | Inpatient (IN) | payer OTHER ==
[~2023-03-30] VITALS: Ht 175.3 cm; Wt 137.4 kg
[2023-03-30 21:54] VITALS: BP_SYST 110; PULSE 108; RESP 19; TEMP 97; O2SAT 97
[2023-03-30] MEDS ORDERED: cefTRIAXone 1 GM IVPB PREMIX 50 ML IV ONE (22:15)
[2023-03-30 23:10] LABS: BASOPHILS # (AUTO) 0.1 K/uL (0.0-0.2); BASOPHILS % (AUTO) 0.6 % (0.0-2.0); EOSINOPHILS % (AUTO) 0.3 % (0.0-4.0); HEMATOCRIT 35.9 % (36-48); HEMOGLOBIN 11.6 g/dL (12.0-16.0); LYMPHOCYTES # (AUTO) 1.3 K/uL (1.0-5.5); LYMPHOCYTES % (AUTO) 8.2 % (20.5-51.5); MEAN CORPUSCULAR HEMOGLOBIN 27 pg (27-31); MEAN CORPUSCULAR HGB CONC 32 % (32-36); MEAN CORPUSCULAR VOLUME 82 fL (79.0-98.0); MONOCYTES # (AUTO) 1.1 K/uL (0.0-1.0); NEUTROPHILS # (AUTO) 13.4 K/uL (1.8-7.7); NEUTROPHILS % (AUTO) 83.9 % (40.0-70.0); PLATELET COUNT (AUTO) 227 K/uL (130-430); RED BLOOD CELL COUNT(AUTO) 4.37 MIL/uL (4.2-6.2); RED CELL DISTRIBUTION WIDTH 18.3 % (9.0-15.0); WHITE BLOOD COUNT (AUTO) 15.9 K/uL (4.8-10.8)
[2023-03-30] MEDS ORDERED: ONDANSETRON 4 MG ODT TAB PO ONE (23:15)
[2023-03-30] MEDS ORDERED: FUROSEMIDE 100 MG/10 ML VIAL IVP ONE (23:30)
[2023-03-31 00:42] LABS: ALANINE AMINOTRANSFERASE 5 U/L (12-78); ALBUMIN 2.1 g/dL (3.4-4.8); ANION GAP 7 (5-15); ASPARTATE AMINOTRANSFERASE 20 U/L (10-37); CALCIUM 8.3 mg/dL (8.4-11.0); CARBON DIOXIDE 29 mmol/L (23-29); CHLORIDE 97 mmol/L (98-107); CREATININE 0.92 mg/dL (0.55-1.30); GLUCOSE 120 mg/dL (74-106); SODIUM SERUM 133 mmol/L (136-145); UREA NITROGEN, BLOOD 36 mg/dL (8-21)
[2023-03-31 00:45] LABS: POTASSIUM 2.9 mmol/L (3.5-5.1)
[2023-03-31] MEDS ORDERED: POTASSIUM CHLORIDE 20 MEQ/PKT PACKET PO ONE (00:45)
[2023-03-31 01:03] LABS: BILIRUBIN,URINE NEGATIVE (NEGATIVE); BLOOD, URINE NEGATIVE (NEGATIVE); CLARITY/URINE CLEAR (CLEAR); COLOR,URINE YELLOW (YELLOW); GLUCOSE,URINE NEGATIVE (NEGATIVE); KETONES,URINE TRACE (NEGATIVE); LEUKOCYTE ESTERASE ,URINE NEGATIVE (NEGATIVE); NITRITE, URINE NEGATIVE (NEGATIVE); PROTEIN URINE TRACE (NEGATIVE); UROBILINOGEN,URINE 0.2 (0.2-1.0)
[2023-03-31 01:36] LABS: RBC,URINE 0-3 /HPF (0-3)
[2023-03-31 01:37] LABS: BACTERIA,URINE None Seen /HPF (None Seen); WBC,URINE 0-3 /HPF (0-3)
[2023-03-31] MEDS ORDERED: ALBUTEROL MDI INHALATION 8 GM INH INH PRN (07:15)
[2023-03-31] MEDS ORDERED: ALBUTEROL SULFATE 0.083% 2.5 MG/3 ML VIAL.NEB INH PRN (08:15)
[2023-03-31] MEDS: METOPROLOL SUCCINATE 25 MG TAB.SR.24H (TOPROL XL) PO SCH ×2 (09:00→21:00)
[2023-03-31] MEDS: FUROSEMIDE 40 MG TABLET PO SCH ×2 (09:00→21:00)
[2023-03-31] MEDS: TIMOLOL MALEATE 0.5% OPHTHALMIC DROPS 5 ML BOTH EYES SCH ×2 (09:00→20:57)
[2023-03-31 10:02] VITALS: BP_SYST 102; PULSE 102; O2SAT 93
[2023-03-31] MEDS ORDERED: ACETAMINOPHEN 325 MG TABLET PO PRN (10:45)
[2023-03-31] MEDS ORDERED: NALOXONE HCL 0.4 MG/ML AMP (NARCAN) IVP PRN ×2 (10:45)
[2023-03-31] MEDS: POTASSIUM CHLORIDE 20 MEQ TAB.PRT.SR PO SCH ×2 (10:51→20:57)
[2023-03-31] MEDS: FERROUS SULFATE 325 MG TABLET.DR PO SCH ×2 (10:51→20:57)
[2023-03-31] MEDS: SERTRALINE HCL 50 MG TABLET PO SCH (10:52)
[2023-03-31] MEDS: DABIGATRAN ETEXILATE MESYLATE 75 MG CAPSULE PO SCH (10:52)
[2023-03-31] MEDS: metOLazone 2.5 MG TABLET PO SCH (10:53)
[2023-03-31] MEDS: HYDROcodone/ACETAMIN 10-325 MG TAB PO PRN ×3 (10:54→23:14)
[2023-03-31] MEDS: SACUBITRIL/VALSARTAN 24 MG-26 MG 1 TABLET PO SCH (11:02)
[2023-03-31 11:05] VITALS: BP_SYST 113; PULSE 95; RESP 20; TEMP 98.9; O2SAT 98
[2023-03-31 11:40] LABS: BASOPHILS # (AUTO) 0.1 K/uL (0.0-0.2); BASOPHILS % (AUTO) 0.5 % (0.0-2.0); EOSINOPHILS # (AUTO) 0.1 K/uL (0.0-0.4); EOSINOPHILS % (AUTO) 0.4 % (0.0-4.0); HEMATOCRIT 32.2 % (36-48); HEMOGLOBIN 10.8 g/dL (12.0-16.0); LYMPHOCYTES # (AUTO) 1.2 K/uL (1.0-5.5); LYMPHOCYTES % (AUTO) 9.4 % (20.5-51.5); MEAN CORPUSCULAR HEMOGLOBIN 27 pg (27-31); MEAN CORPUSCULAR HGB CONC 34 % (32-36); MEAN CORPUSCULAR VOLUME 81 fL (79.0-98.0); MONOCYTES # (AUTO) 1.3 K/uL (0.0-1.0); MONOCYTES % (AUTO) 10.1 % (1.7-9.3); NEUTROPHILS % (AUTO) 79.6 % (40.0-70.0); PLATELET COUNT (AUTO) 211 K/uL (130-430); RED BLOOD CELL COUNT(AUTO) 3.96 MIL/uL (4.2-6.2); RED CELL DISTRIBUTION WIDTH 18.3 % (9.0-15.0); WHITE BLOOD COUNT (AUTO) 12.6 K/uL (4.8-10.8)
[2023-03-31 12:00] VITALS: BP_SYST 110; PULSE 101; RESP 20; TEMP 97.8; O2SAT 94
[2023-03-31 12:20] LABS: ANION GAP 4 (5-15); CALCIUM 7.9 mg/dL (8.4-11.0); CARBON DIOXIDE 30 mmol/L (23-29); CHLORIDE 100 mmol/L (98-107); CREATININE 0.85 mg/dL (0.55-1.30); GLUCOSE 105 mg/dL (74-106); SODIUM SERUM 134 mmol/L (136-145); UREA NITROGEN, BLOOD 38 mg/dL (8-21)
[2023-03-31 12:26] LABS: POTASSIUM 2.8 mmol/L (3.5-5.1)
[2023-03-31] MEDS ORDERED: POTASSIUM CHLORIDE 40 MEQ in NS 250 ML IV ONE (13:30)
[2023-03-31] MEDS: NORMAL SALINE 5 ML DISP.SYRIN IVF SCH ×2 (14:45→21:05)
[2023-03-31] MEDS: POTASSIUM CHLORIDE 20 mEq in 100 mL (PREMIX) 100 ML x 2 doses IV SCH ×2 (14:53→16:47)
[2023-03-31 16:00] VITALS: BP_SYST 101; PULSE 110; RESP 20; TEMP 98.2; O2SAT 94
[2023-03-31] MEDS: cefTRIAXone 1 GM IVPB PREMIX 50 ML IV SCH (20:53)
[2023-03-31] MEDS: LATANOPROST 2.5 ML DROPS (XALATAN) BOTH EYES SCH (20:57)
[2023-03-31] MEDS: traZODone HCL 50 MG TABLET (DESYREL) PO SCH (20:57)
[2023-03-31] MEDS: MIRTAZAPINE 15 MG TABLET PO SCH (20:58)
[2023-04-01] VITALS (10 sets, daily range): BP systolic 102–111; PULSE 100–110; RESP 18–20; TEMP 97.6–98; O2SAT 93–99
[2023-04-01] MEDS: HYDROcodone/ACETAMIN 10-325 MG TAB PO PRN (03:25)
[2023-04-01] MEDS: NORMAL SALINE 5 ML DISP.SYRIN IVF SCH ×3 (05:58→20:57)
[2023-04-01 06:24] LABS: BASOPHILS % (AUTO) 0.4 % (0.0-2.0); EOSINOPHILS # (AUTO) 0.3 K/uL (0.0-0.4); EOSINOPHILS % (AUTO) 2.5 % (0.0-4.0); HEMATOCRIT 31.5 % (36-48); HEMOGLOBIN 10.4 g/dL (12.0-16.0); LYMPHOCYTES # (AUTO) 1.3 K/uL (1.0-5.5); LYMPHOCYTES % (AUTO) 10.9 % (20.5-51.5); MEAN CORPUSCULAR HEMOGLOBIN 27 pg (27-31); MEAN CORPUSCULAR HGB CONC 33 % (32-36); MEAN CORPUSCULAR VOLUME 81 fL (79.0-98.0); MONOCYTES # (AUTO) 1.2 K/uL (0.0-1.0); MONOCYTES % (AUTO) 9.8 % (1.7-9.3); NEUTROPHILS # (AUTO) 9.4 K/uL (1.8-7.7); NEUTROPHILS % (AUTO) 76.4 % (40.0-70.0); PLATELET COUNT (AUTO) 230 K/uL (130-430); RED BLOOD CELL COUNT(AUTO) 3.89 MIL/uL (4.2-6.2); RED CELL DISTRIBUTION WIDTH 18.5 % (9.0-15.0); WHITE BLOOD COUNT (AUTO) 12.4 K/uL (4.8-10.8)
[2023-04-01 06:43] LABS: ANION GAP 3 (5-15); CALCIUM 7.8 mg/dL (8.4-11.0); CARBON DIOXIDE 31 mmol/L (23-29); CHLORIDE 99 mmol/L (98-107); CREATININE 1.15 mg/dL (0.55-1.30); GLUCOSE 83 mg/dL (74-106); POTASSIUM 3.6 mmol/L (3.5-5.1); SODIUM SERUM 133 mmol/L (136-145); UREA NITROGEN, BLOOD 45 mg/dL (8-21)
[2023-04-01 07:54] LABS: ERYTHROCYTE SEDIMENTATION RATE 110 MM/HR (0-20)
[2023-04-01] MEDS: TIMOLOL MALEATE 0.5% OPHTHALMIC DROPS 5 ML BOTH EYES SCH ×2 (10:17→20:39)
[2023-04-01] MEDS: SACUBITRIL/VALSARTAN 24 MG-26 MG 1 TABLET PO SCH (10:17)
[2023-04-01] MEDS: metOLazone 2.5 MG TABLET PO SCH (10:18)
[2023-04-01] MEDS: FERROUS SULFATE 325 MG TABLET.DR PO SCH ×2 (10:18→20:36)
[2023-04-01] MEDS: FUROSEMIDE 40 MG TABLET PO SCH ×2 (10:19→20:38)
[2023-04-01] MEDS: SERTRALINE HCL 50 MG TABLET PO SCH (10:19)
[2023-04-01] MEDS: METOPROLOL SUCCINATE 25 MG TAB.SR.24H (TOPROL XL) PO SCH ×2 (10:19→20:37)
[2023-04-01] MEDS: POTASSIUM CHLORIDE 20 MEQ TAB.PRT.SR PO SCH ×2 (10:20→20:37)
[2023-04-01] MEDS: DABIGATRAN ETEXILATE MESYLATE 75 MG CAPSULE PO SCH (10:22)
[2023-04-01] MEDS: ALBUTEROL SULFATE 0.083% 2.5 MG/3 ML VIAL.NEB INH SCH ×4 (11:24→22:46)
[2023-04-01] MEDS: IPRATROPIUM BROM 0.5 MG/2.5 ML VIAL.NEB (ATROVENT) INH SCH ×4 (11:24→22:46)
[2023-04-01] MEDS: HYDROcodone/ACETAMIN 5-325 MG TAB (NORCO/ VICODIN) PO PRN ×2 (17:00→22:45)
[2023-04-01] MEDS: traZODone HCL 50 MG TABLET (DESYREL) PO SCH (20:36)
[2023-04-01] MEDS: MIRTAZAPINE 15 MG TABLET PO SCH (20:36)
[2023-04-01] MEDS: cefTRIAXone 1 GM IVPB PREMIX 50 ML IV SCH (20:36)
[2023-04-01] MEDS: LATANOPROST 2.5 ML DROPS (XALATAN) BOTH EYES SCH (20:38)
[2023-04-01] MEDS: ONDANSETRON HCL 4 MG/2 ML VIAL IVP PRN (20:47)
[2023-04-01] MEDS: ACETAMINOPHEN 325 MG TABLET PO PRN (20:48)
[2023-04-02] VITALS (12 sets, daily range): BP systolic 103–118; PULSE 75–100; RESP 16–18; TEMP 97.1–98.6; O2SAT 93–99
[2023-04-02] MEDS: ALBUTEROL SULFATE 0.083% 2.5 MG/3 ML VIAL.NEB INH SCH ×6 (02:12→23:15)
[2023-04-02] MEDS: IPRATROPIUM BROM 0.5 MG/2.5 ML VIAL.NEB (ATROVENT) INH SCH ×6 (02:12→23:14)
[2023-04-02] MEDS: HYDROcodone/ACETAMIN 10-325 MG TAB PO PRN ×4 (02:38→21:16)
[2023-04-02] MEDS: NORMAL SALINE 5 ML DISP.SYRIN IVF SCH ×3 (05:54→21:24)
[2023-04-02 07:05] LABS: ERYTHROCYTE SEDIMENTATION RATE 126 MM/HR (0-20)
[2023-04-02 07:16] LABS: ANION GAP 6 (5-15); CALCIUM 7.8 mg/dL (8.4-11.0); CARBON DIOXIDE 28 mmol/L (23-29); CHLORIDE 101 mmol/L (98-107); CREATININE 0.99 mg/dL (0.55-1.30); GLUCOSE 93 mg/dL (74-106); POTASSIUM 3.8 mmol/L (3.5-5.1); SODIUM SERUM 135 mmol/L (136-145); UREA NITROGEN, BLOOD 47 mg/dL (8-21)
[2023-04-02 08:10] LABS: BASOPHILS % (AUTO) 0.1 % (0.0-2.0); EOSINOPHILS # (AUTO) 0.2 K/uL (0.0-0.4); EOSINOPHILS % (AUTO) 2.1 % (0.0-4.0); HEMATOCRIT 30.2 % (36-48); HEMOGLOBIN 9.6 g/dL (12.0-16.0); LYMPHOCYTES # (AUTO) 1.4 K/uL (1.0-5.5); LYMPHOCYTES % (AUTO) 12.8 % (20.5-51.5); MEAN CORPUSCULAR HEMOGLOBIN 26 pg (27-31); MEAN CORPUSCULAR HGB CONC 32 % (32-36); MEAN CORPUSCULAR VOLUME 83 fL (79.0-98.0); MONOCYTES # (AUTO) 1.3 K/uL (0.0-1.0); MONOCYTES % (AUTO) 12.1 % (1.7-9.3); NEUTROPHILS % (AUTO) 72.9 % (40.0-70.0); PLATELET COUNT (AUTO) 241 K/uL (130-430); RED BLOOD CELL COUNT(AUTO) 3.64 MIL/uL (4.2-6.2); RED CELL DISTRIBUTION WIDTH 18.5 % (9.0-15.0)
[2023-04-02] MEDS: TIMOLOL MALEATE 0.5% OPHTHALMIC DROPS 5 ML BOTH EYES SCH ×2 (08:32→21:03)
[2023-04-02] MEDS: SACUBITRIL/VALSARTAN 24 MG-26 MG 1 TABLET PO SCH (08:33)
[2023-04-02] MEDS: metOLazone 2.5 MG TABLET PO SCH (08:34)
[2023-04-02] MEDS: DABIGATRAN ETEXILATE MESYLATE 75 MG CAPSULE PO SCH (08:35)
[2023-04-02] MEDS: FERROUS SULFATE 325 MG TABLET.DR PO SCH ×2 (08:36→21:04)
[2023-04-02] MEDS: POTASSIUM CHLORIDE 20 MEQ TAB.PRT.SR PO SCH ×2 (08:36→21:08)
[2023-04-02] MEDS: SERTRALINE HCL 50 MG TABLET PO SCH (08:36)
[2023-04-02] MEDS: FUROSEMIDE 40 MG TABLET PO SCH ×2 (08:37→21:13)
[2023-04-02] MEDS: METOPROLOL SUCCINATE 25 MG TAB.SR.24H (TOPROL XL) PO SCH ×2 (08:38→21:13)
[2023-04-02] MEDS: LATANOPROST 2.5 ML DROPS (XALATAN) BOTH EYES SCH (21:03)
[2023-04-02] MEDS: cefTRIAXone 1 GM IVPB PREMIX 50 ML IV SCH (21:04)
[2023-04-02] MEDS: MIRTAZAPINE 15 MG TABLET PO SCH (21:08)
[2023-04-02] MEDS: ONDANSETRON HCL 4 MG/2 ML VIAL IVP PRN (21:09)
[2023-04-02] MEDS: traZODone HCL 50 MG TABLET (DESYREL) PO SCH (21:09)
[2023-04-03] VITALS (11 sets, daily range): BP systolic 95–166; PULSE 74–106; RESP 14–20; TEMP 95.3–97.6; O2SAT 93–100
[2023-04-03] MEDS: HYDROcodone/ACETAMIN 10-325 MG TAB PO PRN ×2 (02:46→05:37)
[2023-04-03] MEDS: ALBUTEROL SULFATE 0.083% 2.5 MG/3 ML VIAL.NEB INH SCH ×6 (03:00→22:54)
[2023-04-03] MEDS: IPRATROPIUM BROM 0.5 MG/2.5 ML VIAL.NEB (ATROVENT) INH SCH ×6 (03:00→22:54)
[2023-04-03 05:02] LABS: BASOPHILS % (AUTO) 0.3 % (0.0-2.0); EOSINOPHILS # (AUTO) 0.2 K/uL (0.0-0.4); HEMATOCRIT 31.8 % (36-48); HEMOGLOBIN 10.3 g/dL (12.0-16.0); LYMPHOCYTES # (AUTO) 1.2 K/uL (1.0-5.5); LYMPHOCYTES % (AUTO) 11.1 % (20.5-51.5); MEAN CORPUSCULAR HEMOGLOBIN 27 pg (27-31); MEAN CORPUSCULAR HGB CONC 32 % (32-36); MEAN CORPUSCULAR VOLUME 83 fL (79.0-98.0); MONOCYTES # (AUTO) 1.2 K/uL (0.0-1.0); MONOCYTES % (AUTO) 11.1 % (1.7-9.3); NEUTROPHILS # (AUTO) 8.4 K/uL (1.8-7.7); NEUTROPHILS % (AUTO) 75.5 % (40.0-70.0); PLATELET COUNT (AUTO) 270 K/uL (130-430); RED BLOOD CELL COUNT(AUTO) 3.85 MIL/uL (4.2-6.2); RED CELL DISTRIBUTION WIDTH 18.2 % (9.0-15.0); WHITE BLOOD COUNT (AUTO) 11.1 K/uL (4.8-10.8)
[2023-04-03] MEDS: NORMAL SALINE 5 ML DISP.SYRIN IVF SCH ×2 (05:09→13:13)
[2023-04-03 05:14] LABS: ERYTHROCYTE SEDIMENTATION RATE 71 MM/HR (0-20)
[2023-04-03 05:45] LABS: ALANINE AMINOTRANSFERASE 3 U/L (12-78); ALBUMIN 1.6 g/dL (3.4-4.8); ANION GAP 6 (5-15); ASPARTATE AMINOTRANSFERASE 16 U/L (10-37); CARBON DIOXIDE 29 mmol/L (23-29); CHLORIDE 101 mmol/L (98-107); CREATININE 0.98 mg/dL (0.55-1.30); GLUCOSE 87 mg/dL (74-106); PHOSPHORUS 2.9 mg/dL (2.7-4.5); POTASSIUM 4.1 mmol/L (3.5-5.1); SODIUM SERUM 136 mmol/L (136-145); TOTAL BILIRUBIN 1.9 mg/dL (0.0-1.0); TOTAL PROTEIN, SERUM 6.5 g/dL (6.4-8.3); UREA NITROGEN, BLOOD 42 mg/dL (8-21)
[2023-04-03] MEDS: SACUBITRIL/VALSARTAN 24 MG-26 MG 1 TABLET PO SCH (09:54)
[2023-04-03] MEDS: FERROUS SULFATE 325 MG TABLET.DR PO SCH ×2 (09:55→20:26)
[2023-04-03] MEDS: metOLazone 2.5 MG TABLET PO SCH (09:55)
[2023-04-03] MEDS: METOPROLOL SUCCINATE 25 MG TAB.SR.24H (TOPROL XL) PO SCH ×2 (09:56→20:26)
[2023-04-03] MEDS: FUROSEMIDE 40 MG TABLET PO SCH ×2 (09:56→20:28)
[2023-04-03] MEDS: POTASSIUM CHLORIDE 20 MEQ TAB.PRT.SR PO SCH ×2 (09:59→20:26)
[2023-04-03] MEDS: DABIGATRAN ETEXILATE MESYLATE 75 MG CAPSULE PO SCH (09:59)
[2023-04-03] MEDS: SERTRALINE HCL 50 MG TABLET PO SCH (10:00)
[2023-04-03] MEDS: TIMOLOL MALEATE 0.5% OPHTHALMIC DROPS 5 ML BOTH EYES SCH ×2 (10:00→20:27)
[2023-04-03] MEDS: HYDROcodone/ACETAMIN 5-325 MG TAB (NORCO/ VICODIN) PO PRN ×2 (13:11→20:26)
[2023-04-03] MEDS: traZODone HCL 50 MG TABLET (DESYREL) PO SCH (20:26)
[2023-04-03] MEDS: MIRTAZAPINE 15 MG TABLET PO SCH (20:27)
[2023-04-03] MEDS: LATANOPROST 2.5 ML DROPS (XALATAN) BOTH EYES SCH (20:27)
[2023-04-03] MEDS: LANOLIN ALCOHOL/MO/W.PET/CERES 57 GM CREAM..G. TP SCH (20:28)
[2023-04-03] MEDS: cefTRIAXone 1 GM IVPB PREMIX 50 ML IV SCH (21:15)
[2023-04-04] VITALS (13 sets, daily range): BP systolic 87–138; PULSE 89–103; RESP 14–22; TEMP 97.1–99.2; O2SAT 91–100
[2023-04-04] MEDS: HYDROcodone/ACETAMIN 10-325 MG TAB PO PRN (00:44)
[2023-04-04] MEDS: NORMAL SALINE 5 ML DISP.SYRIN IVF SCH ×4 (00:49→23:27)
[2023-04-04] MEDS: LORazepam 2 MG/ML VIAL IVP PRN ×3 (01:20→21:37)
[2023-04-04] MEDS: IPRATROPIUM BROM 0.5 MG/2.5 ML VIAL.NEB (ATROVENT) INH SCH ×6 (02:59→23:17)
[2023-04-04] MEDS: ALBUTEROL SULFATE 0.083% 2.5 MG/3 ML VIAL.NEB INH SCH ×6 (02:59→23:17)
[2023-04-04 06:50] LABS: BASOPHILS # (AUTO) 0.1 K/uL (0.0-0.2); BASOPHILS % (AUTO) 0.5 % (0.0-2.0); EOSINOPHILS # (AUTO) 0.1 K/uL (0.0-0.4); HEMATOCRIT 31.4 % (36-48); LYMPHOCYTES # (AUTO) 1.2 K/uL (1.0-5.5); LYMPHOCYTES % (AUTO) 9.8 % (20.5-51.5); MEAN CORPUSCULAR HEMOGLOBIN 27 pg (27-31); MEAN CORPUSCULAR HGB CONC 32 % (32-36); MEAN CORPUSCULAR VOLUME 83 fL (79.0-98.0); MONOCYTES # (AUTO) 1.1 K/uL (0.0-1.0); MONOCYTES % (AUTO) 9.2 % (1.7-9.3); NEUTROPHILS # (AUTO) 9.8 K/uL (1.8-7.7); NEUTROPHILS % (AUTO) 79.5 % (40.0-70.0); PLATELET COUNT (AUTO) 315 K/uL (130-430); RED BLOOD CELL COUNT(AUTO) 3.78 MIL/uL (4.2-6.2); RED CELL DISTRIBUTION WIDTH 18.5 % (9.0-15.0); WHITE BLOOD COUNT (AUTO) 12.3 K/uL (4.8-10.8)
[2023-04-04 07:05] LABS: ANION GAP 6 (5-15); CALCIUM 8.1 mg/dL (8.4-11.0); CARBON DIOXIDE 28 mmol/L (23-29); CHLORIDE 101 mmol/L (98-107); CREATININE 0.88 mg/dL (0.55-1.30); GLUCOSE 100 mg/dL (74-106); POTASSIUM 3.8 mmol/L (3.5-5.1); SODIUM SERUM 135 mmol/L (136-145); UREA NITROGEN, BLOOD 39 mg/dL (8-21)
[2023-04-04 07:15] LABS: ERYTHROCYTE SEDIMENTATION RATE > 130 MM/HR (0-20)
[2023-04-04] MEDS: FUROSEMIDE 40 MG TABLET PO SCH ×2 (08:57→20:47)
[2023-04-04] MEDS: FERROUS SULFATE 325 MG TABLET.DR PO SCH ×2 (08:57→20:47)
[2023-04-04] MEDS: METOPROLOL SUCCINATE 25 MG TAB.SR.24H (TOPROL XL) PO SCH ×2 (08:58→20:46)
[2023-04-04] MEDS: SERTRALINE HCL 50 MG TABLET PO SCH (08:58)
[2023-04-04] MEDS: metOLazone 2.5 MG TABLET PO SCH (08:59)
[2023-04-04] MEDS: POTASSIUM CHLORIDE 20 MEQ TAB.PRT.SR PO SCH ×2 (08:59→20:47)
[2023-04-04] MEDS: SACUBITRIL/VALSARTAN 24 MG-26 MG 1 TABLET PO SCH (08:59)
[2023-04-04] MEDS: TIMOLOL MALEATE 0.5% OPHTHALMIC DROPS 5 ML BOTH EYES SCH ×2 (08:59→20:48)
[2023-04-04] MEDS: ACETAMINOPHEN 325 MG TABLET PO PRN (08:59)
[2023-04-04] MEDS: DABIGATRAN ETEXILATE MESYLATE 75 MG CAPSULE PO SCH (09:01)
[2023-04-04] MEDS: LANOLIN ALCOHOL/MO/W.PET/CERES 57 GM CREAM..G. TP SCH ×2 (09:18→20:45)
[2023-04-04] MEDS: HYDROcodone/ACETAMIN 5-325 MG TAB (NORCO/ VICODIN) PO PRN (12:19)
[2023-04-04] MEDS: traZODone HCL 50 MG TABLET (DESYREL) PO SCH (20:46)
[2023-04-04] MEDS: MIRTAZAPINE 15 MG TABLET PO SCH (20:47)
[2023-04-04] MEDS: LATANOPROST 2.5 ML DROPS (XALATAN) BOTH EYES SCH (20:48)
[2023-04-04] MEDS: cefTRIAXone 1 GM IVPB PREMIX 50 ML IV SCH (21:37)
[2023-04-05] VITALS (10 sets, daily range): BP systolic 95–123; PULSE 96–103; RESP 14–20; TEMP 97.5–99.6; O2SAT 93–99
[2023-04-05] MEDS: ALBUTEROL SULFATE 0.083% 2.5 MG/3 ML VIAL.NEB INH SCH ×6 (03:56→23:07)
[2023-04-05] MEDS: IPRATROPIUM BROM 0.5 MG/2.5 ML VIAL.NEB (ATROVENT) INH SCH ×6 (03:56→23:07)
[2023-04-05] MEDS: LORazepam 2 MG/ML VIAL IVP PRN (03:57)
[2023-04-05] MEDS: NORMAL SALINE 5 ML DISP.SYRIN IVF SCH ×2 (06:18→14:00)
[2023-04-05 07:20] LABS: BASOPHILS # (AUTO) 0.1 K/uL (0.0-0.2); BASOPHILS % (AUTO) 0.5 % (0.0-2.0); EOSINOPHILS # (AUTO) 0.1 K/uL (0.0-0.4); EOSINOPHILS % (AUTO) 0.7 % (0.0-4.0); HEMATOCRIT 35.9 % (36-48); HEMOGLOBIN 11.3 g/dL (12.0-16.0); LYMPHOCYTES # (AUTO) 1.3 K/uL (1.0-5.5); MEAN CORPUSCULAR HEMOGLOBIN 27 pg (27-31); MEAN CORPUSCULAR HGB CONC 32 % (32-36); MEAN CORPUSCULAR VOLUME 85 fL (79.0-98.0); MONOCYTES # (AUTO) 0.9 K/uL (0.0-1.0); MONOCYTES % (AUTO) 7.7 % (1.7-9.3); NEUTROPHILS # (AUTO) 9.8 K/uL (1.8-7.7); NEUTROPHILS % (AUTO) 80.1 % (40.0-70.0); PLATELET COUNT (AUTO) 282 K/uL (130-430); RED BLOOD CELL COUNT(AUTO) 4.25 MIL/uL (4.2-6.2); RED CELL DISTRIBUTION WIDTH 18.9 % (9.0-15.0); WHITE BLOOD COUNT (AUTO) 12.2 K/uL (4.8-10.8)
[2023-04-05 07:26] LABS: ERYTHROCYTE SEDIMENTATION RATE > 130 MM/HR (0-20)
[2023-04-05 08:22] LABS: ANION GAP 7 (5-15)
[2023-04-05 08:34] LABS: CALCIUM 8.5 mg/dL (8.4-11.0)
[2023-04-05 08:38] LABS: CARBON DIOXIDE 25 mmol/L (23-29); CHLORIDE 99 mmol/L (98-107); CREATININE 0.98 mg/dL (0.55-1.30); GLUCOSE 94 mg/dL (74-106); SODIUM SERUM 131 mmol/L (136-145); UREA NITROGEN, BLOOD 36 mg/dL (8-21)
[2023-04-05] MEDS: FUROSEMIDE 40 MG TABLET PO SCH ×2 (09:00→21:00)
[2023-04-05] MEDS: FERROUS SULFATE 325 MG TABLET.DR PO SCH ×2 (09:00→21:00)
[2023-04-05] MEDS: METOPROLOL SUCCINATE 25 MG TAB.SR.24H (TOPROL XL) PO SCH ×2 (09:00→21:00)
[2023-04-05] MEDS: SACUBITRIL/VALSARTAN 24 MG-26 MG 1 TABLET PO SCH (09:00)
[2023-04-05] MEDS: DABIGATRAN ETEXILATE MESYLATE 75 MG CAPSULE PO SCH (09:00)
[2023-04-05] MEDS: metOLazone 2.5 MG TABLET PO SCH (09:00)
[2023-04-05] MEDS: POTASSIUM CHLORIDE 20 MEQ TAB.PRT.SR PO SCH ×2 (09:00→21:00)
[2023-04-05] MEDS: SERTRALINE HCL 50 MG TABLET PO SCH (09:00)
[2023-04-05] MEDS: TIMOLOL MALEATE 0.5% OPHTHALMIC DROPS 5 ML BOTH EYES SCH ×2 (12:28→20:47)
[2023-04-05] MEDS: LANOLIN ALCOHOL/MO/W.PET/CERES 57 GM CREAM..G. TP SCH ×2 (12:29→21:00)
[2023-04-05] MEDS: HYDROcodone/ACETAMIN 10-325 MG TAB PO PRN (16:32)
[2023-04-05] MEDS: cefTRIAXone 1 GM IVPB PREMIX 50 ML IV SCH (20:45)
[2023-04-05] MEDS: LATANOPROST 2.5 ML DROPS (XALATAN) BOTH EYES SCH (20:48)
[2023-04-05] MEDS: traZODone HCL 50 MG TABLET (DESYREL) PO SCH (21:00)
[2023-04-05] MEDS: MIRTAZAPINE 15 MG TABLET PO SCH (21:00)
[2023-04-06] VITALS (11 sets, daily range): BP systolic 88–123; PULSE 68–118; RESP 18–19; TEMP 97.3–99; O2SAT 10–100
[2023-04-06] MEDS: HYDROcodone/ACETAMIN 5-325 MG TAB (NORCO/ VICODIN) PO PRN (01:42)
[2023-04-06] MEDS: NORMAL SALINE 5 ML DISP.SYRIN IVF SCH ×4 (01:42→21:44)
[2023-04-06] MEDS: ALBUTEROL SULFATE 0.083% 2.5 MG/3 ML VIAL.NEB INH SCH ×6 (03:44→23:21)
[2023-04-06] MEDS: IPRATROPIUM BROM 0.5 MG/2.5 ML VIAL.NEB (ATROVENT) INH SCH ×6 (03:44→23:21)
[2023-04-06 05:33] LABS: BASOPHILS % (AUTO) 0.2 % (0.0-2.0); EOSINOPHILS # (AUTO) 0.1 K/uL (0.0-0.4); EOSINOPHILS % (AUTO) 1.2 % (0.0-4.0); HEMATOCRIT 28.4 % (36-48); HEMOGLOBIN 9.3 g/dL (12.0-16.0); LYMPHOCYTES # (AUTO) 0.8 K/uL (1.0-5.5); LYMPHOCYTES % (AUTO) 7.3 % (20.5-51.5); MEAN CORPUSCULAR HEMOGLOBIN 28 pg (27-31); MEAN CORPUSCULAR HGB CONC 33 % (32-36); MEAN CORPUSCULAR VOLUME 84 fL (79.0-98.0); MONOCYTES # (AUTO) 0.8 K/uL (0.0-1.0); MONOCYTES % (AUTO) 7.7 % (1.7-9.3); NEUTROPHILS # (AUTO) 9.2 K/uL (1.8-7.7); NEUTROPHILS % (AUTO) 83.6 % (40.0-70.0); PLATELET COUNT (AUTO) 273 K/uL (130-430); RED BLOOD CELL COUNT(AUTO) 3.37 MIL/uL (4.2-6.2)
[2023-04-06 05:43] LABS: ALANINE AMINOTRANSFERASE 4 U/L (12-78); ALBUMIN 1.6 g/dL (3.4-4.8); ANION GAP 8 (5-15); ASPARTATE AMINOTRANSFERASE 24 U/L (10-37); CALCIUM 8.1 mg/dL (8.4-11.0); CARBON DIOXIDE 27 mmol/L (23-29); CHLORIDE 103 mmol/L (98-107); CREATININE 0.98 mg/dL (0.55-1.30); GLUCOSE 85 mg/dL (74-106); PHOSPHORUS 3.6 mg/dL (2.7-4.5); POTASSIUM 3.5 mmol/L (3.5-5.1); SODIUM SERUM 138 mmol/L (136-145); TOTAL BILIRUBIN 1.9 mg/dL (0.0-1.0); TOTAL PROTEIN, SERUM 6.4 g/dL (6.4-8.3); UREA NITROGEN, BLOOD 39 mg/dL (8-21)
[2023-04-06 05:56] LABS: ERYTHROCYTE SEDIMENTATION RATE 125 MM/HR (0-20)
[2023-04-06] MEDS: FERROUS SULFATE 325 MG TABLET.DR PO SCH ×2 (08:54→21:23)
[2023-04-06] MEDS: SERTRALINE HCL 50 MG TABLET PO SCH (08:54)
[2023-04-06] MEDS: POTASSIUM CHLORIDE 20 MEQ TAB.PRT.SR PO SCH ×2 (08:54→21:24)
[2023-04-06] MEDS: DABIGATRAN ETEXILATE MESYLATE 75 MG CAPSULE PO SCH (08:56)
[2023-04-06] MEDS: LANOLIN ALCOHOL/MO/W.PET/CERES 57 GM CREAM..G. TP SCH ×2 (08:58→21:30)
[2023-04-06] MEDS: METOPROLOL SUCCINATE 25 MG TAB.SR.24H (TOPROL XL) PO SCH ×2 (09:00→21:00)
[2023-04-06] MEDS: metOLazone 2.5 MG TABLET PO SCH (09:00)
[2023-04-06] MEDS: FUROSEMIDE 40 MG TABLET PO SCH ×2 (09:00→21:26)
[2023-04-06] MEDS: SACUBITRIL/VALSARTAN 24 MG-26 MG 1 TABLET PO SCH (09:03)
[2023-04-06] MEDS: TIMOLOL MALEATE 0.5% OPHTHALMIC DROPS 5 ML BOTH EYES SCH ×2 (12:42→21:27)
[2023-04-06] MEDS: MIRTAZAPINE 15 MG TABLET PO SCH (21:23)
[2023-04-06] MEDS: traZODone HCL 50 MG TABLET (DESYREL) PO SCH (21:24)
[2023-04-06] MEDS: LATANOPROST 2.5 ML DROPS (XALATAN) BOTH EYES SCH (21:27)
[2023-04-06] MEDS: cefTRIAXone 1 GM IVPB PREMIX 50 ML IV SCH (21:31)
[2023-04-06] MEDS: HYDROcodone/ACETAMIN 10-325 MG TAB PO PRN (23:42)
[2023-04-07] VITALS (12 sets, daily range): BP systolic 96–159; PULSE 104–119; RESP 18–20; TEMP 97.8–99.4; O2SAT 95–99
[2023-04-07] MEDS: ALBUTEROL SULFATE 0.083% 2.5 MG/3 ML VIAL.NEB INH SCH ×6 (04:03→23:04)
[2023-04-07] MEDS: IPRATROPIUM BROM 0.5 MG/2.5 ML VIAL.NEB (ATROVENT) INH SCH ×6 (04:03→23:04)
[2023-04-07 05:45] LABS: ERYTHROCYTE SEDIMENTATION RATE > 130 MM/HR (0-20)
[2023-04-07 05:49] LABS: BASOPHILS % (AUTO) 0.2 % (0.0-2.0); EOSINOPHILS # (AUTO) 0.1 K/uL (0.0-0.4); HEMATOCRIT 29.2 % (36-48); HEMOGLOBIN 9.3 g/dL (12.0-16.0); LYMPHOCYTES # (AUTO) 1.1 K/uL (1.0-5.5); LYMPHOCYTES % (AUTO) 8.7 % (20.5-51.5); MEAN CORPUSCULAR HEMOGLOBIN 27 pg (27-31); MEAN CORPUSCULAR HGB CONC 32 % (32-36); MEAN CORPUSCULAR VOLUME 84 fL (79.0-98.0); MONOCYTES # (AUTO) 0.8 K/uL (0.0-1.0); MONOCYTES % (AUTO) 6.4 % (1.7-9.3); NEUTROPHILS # (AUTO) 10.2 K/uL (1.8-7.7); NEUTROPHILS % (AUTO) 83.7 % (40.0-70.0); PLATELET COUNT (AUTO) 261 K/uL (130-430); RED BLOOD CELL COUNT(AUTO) 3.47 MIL/uL (4.2-6.2); RED CELL DISTRIBUTION WIDTH 19.3 % (9.0-15.0); WHITE BLOOD COUNT (AUTO) 12.2 K/uL (4.8-10.8)
[2023-04-07 06:05] LABS: ANION GAP 6 (5-15); CALCIUM 7.9 mg/dL (8.4-11.0); CARBON DIOXIDE 27 mmol/L (23-29); CHLORIDE 101 mmol/L (98-107); CREATININE 1.02 mg/dL (0.55-1.30); GLUCOSE 99 mg/dL (74-106); POTASSIUM 3.9 mmol/L (3.5-5.1); SODIUM SERUM 134 mmol/L (136-145); UREA NITROGEN, BLOOD 44 mg/dL (8-21)
[2023-04-07] MEDS: ACETAMINOPHEN 325 MG TABLET PO PRN (06:26)
[2023-04-07] MEDS: NORMAL SALINE 5 ML DISP.SYRIN IVF SCH ×3 (06:26→22:46)
[2023-04-07] MEDS ORDERED: PANTOPRAZOLE SODIUM 40 MG TAB PO ONE ×2 (09:00→14:00)
[2023-04-07] MEDS: METOPROLOL SUCCINATE 25 MG TAB.SR.24H (TOPROL XL) PO SCH ×2 (09:00→22:48)
[2023-04-07] MEDS: SACUBITRIL/VALSARTAN 24 MG-26 MG 1 TABLET PO SCH (10:39)
[2023-04-07] MEDS: TIMOLOL MALEATE 0.5% OPHTHALMIC DROPS 5 ML BOTH EYES SCH ×2 (10:39→22:48)
[2023-04-07] MEDS: FERROUS SULFATE 325 MG TABLET.DR PO SCH ×2 (10:40→22:47)
[2023-04-07] MEDS: FUROSEMIDE 40 MG TABLET PO SCH ×2 (10:40→22:47)
[2023-04-07] MEDS: metOLazone 2.5 MG TABLET PO SCH (10:41)
[2023-04-07] MEDS: SERTRALINE HCL 50 MG TABLET PO SCH (10:42)
[2023-04-07] MEDS: LANOLIN ALCOHOL/MO/W.PET/CERES 57 GM CREAM..G. TP SCH ×2 (10:43→22:49)
[2023-04-07] MEDS: POTASSIUM CHLORIDE 20 MEQ TAB.PRT.SR PO SCH ×2 (10:44→22:46)
[2023-04-07] MEDS: DABIGATRAN ETEXILATE MESYLATE 75 MG CAPSULE PO SCH (10:46)
[2023-04-07] MEDS: ONDANSETRON HCL 4 MG/2 ML VIAL IVP PRN (12:49)
[2023-04-07] MEDS: HYDROcodone/ACETAMIN 5-325 MG TAB (NORCO/ VICODIN) PO PRN (13:52)
[2023-04-07] MEDS: cefTRIAXone 1 GM IVPB PREMIX 50 ML IV SCH (22:26)
[2023-04-07] MEDS: MIRTAZAPINE 15 MG TABLET PO SCH (22:48)
[2023-04-07] MEDS: traZODone HCL 50 MG TABLET (DESYREL) PO SCH (22:48)
[2023-04-07] MEDS: LATANOPROST 2.5 ML DROPS (XALATAN) BOTH EYES SCH (22:49)
[2023-04-08] VITALS (12 sets, daily range): BP systolic 90–147; PULSE 71–111; RESP 16–18; TEMP 96.8–99.1; O2SAT 96–99
[2023-04-08] MEDS: HYDROcodone/ACETAMIN 5-325 MG TAB (NORCO/ VICODIN) PO PRN ×4 (00:39→20:31)
[2023-04-08] MEDS: ALBUTEROL SULFATE 0.083% 2.5 MG/3 ML VIAL.NEB INH SCH ×6 (02:40→23:00)
[2023-04-08] MEDS: IPRATROPIUM BROM 0.5 MG/2.5 ML VIAL.NEB (ATROVENT) INH SCH ×6 (02:41→23:05)
[2023-04-08 05:57] LABS: ERYTHROCYTE SEDIMENTATION RATE 71 MM/HR (0-20)
[2023-04-08] MEDS: NORMAL SALINE 5 ML DISP.SYRIN IVF SCH ×3 (06:00→20:38)
[2023-04-08 06:01] LABS: BASOPHILS % (AUTO) 0.4 % (0.0-2.0); EOSINOPHILS # (AUTO) 0.1 K/uL (0.0-0.4); LYMPHOCYTES # (AUTO) 0.9 K/uL (1.0-5.5); LYMPHOCYTES % (AUTO) 7.9 % (20.5-51.5); MEAN CORPUSCULAR HEMOGLOBIN 27 pg (27-31); MEAN CORPUSCULAR HGB CONC 32 % (32-36); MEAN CORPUSCULAR VOLUME 85 fL (79.0-98.0); MONOCYTES # (AUTO) 0.9 K/uL (0.0-1.0); MONOCYTES % (AUTO) 7.6 % (1.7-9.3); NEUTROPHILS # (AUTO) 9.3 K/uL (1.8-7.7); NEUTROPHILS % (AUTO) 83.1 % (40.0-70.0); PLATELET COUNT (AUTO) 239 K/uL (130-430); RED BLOOD CELL COUNT(AUTO) 3.31 MIL/uL (4.2-6.2); RED CELL DISTRIBUTION WIDTH 19.6 % (9.0-15.0); WHITE BLOOD COUNT (AUTO) 11.2 K/uL (4.8-10.8)
[2023-04-08 06:29] LABS: ALANINE AMINOTRANSFERASE 5 U/L (12-78); ALBUMIN 1.5 g/dL (3.4-4.8); ANION GAP 8 (5-15); ASPARTATE AMINOTRANSFERASE 25 U/L (10-37); CALCIUM 7.9 mg/dL (8.4-11.0); CARBON DIOXIDE 28 mmol/L (23-29); CHLORIDE 102 mmol/L (98-107); CREATININE 1.21 mg/dL (0.55-1.30); GLUCOSE 100 mg/dL (74-106); POTASSIUM 4.2 mmol/L (3.5-5.1); SODIUM SERUM 138 mmol/L (136-145); TOTAL BILIRUBIN 1.7 mg/dL (0.0-1.0); TOTAL PROTEIN, SERUM 6.3 g/dL (6.4-8.3); UREA NITROGEN, BLOOD 50 mg/dL (8-21)
[2023-04-08] MEDS: TIMOLOL MALEATE 0.5% OPHTHALMIC DROPS 5 ML BOTH EYES SCH ×2 (09:00→20:37)
[2023-04-08] MEDS: LANOLIN ALCOHOL/MO/W.PET/CERES 57 GM CREAM..G. TP SCH ×2 (09:00→20:37)
[2023-04-08] MEDS: PANTOPRAZOLE SODIUM 40 MG TAB PO SCH (09:15)
[2023-04-08] MEDS: FERROUS SULFATE 325 MG TABLET.DR PO SCH ×2 (09:15→20:27)
[2023-04-08] MEDS: metOLazone 2.5 MG TABLET PO SCH (09:16)
[2023-04-08] MEDS: POTASSIUM CHLORIDE 20 MEQ TAB.PRT.SR PO SCH ×2 (09:17→20:27)
[2023-04-08] MEDS: SERTRALINE HCL 50 MG TABLET PO SCH (09:17)
[2023-04-08] MEDS: FUROSEMIDE 40 MG TABLET PO SCH ×2 (09:17→20:39)
[2023-04-08] MEDS: DABIGATRAN ETEXILATE MESYLATE 75 MG CAPSULE PO SCH (09:18)
[2023-04-08] MEDS: METOPROLOL SUCCINATE 25 MG TAB.SR.24H (TOPROL XL) PO SCH ×2 (09:22→20:39)
[2023-04-08] MEDS: SACUBITRIL/VALSARTAN 24 MG-26 MG 1 TABLET PO SCH (09:22)
[2023-04-08] MEDS ORDERED: ALBUTEROL SULFATE 0.083% 2.5 MG/3 ML VIAL.NEB INH ONE ×3 (10:04→15:25)
[2023-04-08] MEDS ORDERED: PRO40 PO (11:11)
[2023-04-08] MEDS: traZODone HCL 50 MG TABLET (DESYREL) PO SCH (20:26)
[2023-04-08] MEDS: MIRTAZAPINE 15 MG TABLET PO SCH (20:27)
[2023-04-08] MEDS: LATANOPROST 2.5 ML DROPS (XALATAN) BOTH EYES SCH (20:37)
[2023-04-08] MEDS: cefTRIAXone 1 GM IVPB PREMIX 50 ML IV SCH (21:01)
[2023-04-08] MEDS: ONDANSETRON HCL 4 MG/2 ML VIAL IVP PRN (22:22)
[2023-04-09] VITALS (9 sets, daily range): BP systolic 93–103; PULSE 45–99; RESP 16–18; TEMP 97.5–98.9; O2SAT 93–99
[2023-04-09] MEDS: HYDROcodone/ACETAMIN 5-325 MG TAB (NORCO/ VICODIN) PO PRN ×3 (00:50→16:08)
[2023-04-09] MEDS: ALBUTEROL SULFATE 0.083% 2.5 MG/3 ML VIAL.NEB INH SCH ×4 (03:00→15:33)
[2023-04-09] MEDS ORDERED: KETOROLAC TROMETHAMINE 30 MG VIAL IM PRN (03:00)
[2023-04-09] MEDS: IPRATROPIUM BROM 0.5 MG/2.5 ML VIAL.NEB (ATROVENT) INH SCH ×4 (03:58→15:33)
[2023-04-09] MEDS ORDERED: KETOROLAC TROMETHAMINE 30 MG VIAL IVP PRN (04:15)
[2023-04-09 05:22] LABS: BASOPHILS % (AUTO) 0.2 % (0.0-2.0); EOSINOPHILS # (AUTO) 0.1 K/uL (0.0-0.4); EOSINOPHILS % (AUTO) 1.1 % (0.0-4.0); HEMATOCRIT 31.6 % (36-48); LYMPHOCYTES # (AUTO) 0.6 K/uL (1.0-5.5); MEAN CORPUSCULAR HEMOGLOBIN 27 pg (27-31); MEAN CORPUSCULAR HGB CONC 32 % (32-36); MEAN CORPUSCULAR VOLUME 86 fL (79.0-98.0); MONOCYTES # (AUTO) 0.8 K/uL (0.0-1.0); MONOCYTES % (AUTO) 7.3 % (1.7-9.3); NEUTROPHILS # (AUTO) 9.3 K/uL (1.8-7.7); NEUTROPHILS % (AUTO) 85.4 % (40.0-70.0); PLATELET COUNT (AUTO) 246 K/uL (130-430); RED BLOOD CELL COUNT(AUTO) 3.68 MIL/uL (4.2-6.2); RED CELL DISTRIBUTION WIDTH 19.8 % (9.0-15.0); WHITE BLOOD COUNT (AUTO) 10.9 K/uL (4.8-10.8)
[2023-04-09 05:31] LABS: ERYTHROCYTE SEDIMENTATION RATE 73 MM/HR (0-20)
[2023-04-09 05:41] LABS: ANION GAP 8 (5-15); CALCIUM 8.3 mg/dL (8.4-11.0); CARBON DIOXIDE 27 mmol/L (23-29); CHLORIDE 100 mmol/L (98-107); CREATININE 1.26 mg/dL (0.55-1.30); GLUCOSE 104 mg/dL (74-106); POTASSIUM 4.6 mmol/L (3.5-5.1); SODIUM SERUM 135 mmol/L (136-145); UREA NITROGEN, BLOOD 56 mg/dL (8-21)
[2023-04-09] MEDS: NORMAL SALINE 5 ML DISP.SYRIN IVF SCH ×2 (06:15→14:00)
[2023-04-09] MEDS: PANTOPRAZOLE SODIUM 40 MG TAB PO SCH (10:06)
[2023-04-09] MEDS: metOLazone 2.5 MG TABLET PO SCH (10:06)
[2023-04-09] MEDS: METOPROLOL SUCCINATE 25 MG TAB.SR.24H (TOPROL XL) PO SCH (10:07)
[2023-04-09] MEDS: DABIGATRAN ETEXILATE MESYLATE 75 MG CAPSULE PO SCH (10:08)
[2023-04-09] MEDS: POTASSIUM CHLORIDE 20 MEQ TAB.PRT.SR PO SCH (10:09)
[2023-04-09] MEDS: FUROSEMIDE 40 MG TABLET PO SCH (10:09)
[2023-04-09] MEDS: SERTRALINE HCL 50 MG TABLET PO SCH (10:10)
[2023-04-09] MEDS: SACUBITRIL/VALSARTAN 24 MG-26 MG 1 TABLET PO SCH (10:10)
[2023-04-09] MEDS: FERROUS SULFATE 325 MG TABLET.DR PO SCH (10:10)
[2023-04-09] MEDS: TIMOLOL MALEATE 0.5% OPHTHALMIC DROPS 5 ML BOTH EYES SCH (10:11)
[2023-04-09] MEDS: LANOLIN ALCOHOL/MO/W.PET/CERES 57 GM CREAM..G. TP SCH (10:28)
== END 2023-04-09 19:00 | disposition home health service (06) | DRG 871 ==
LOC: SED 21:49 → STU 03-31 00:29 → SMU 04-03 15:55
PROVIDERS: ADMIT Preventive Medicine Preventive Medicine/Occupational Environmental Medicine; ATTEND Preventive Medicine Preventive Medicine/Occupational Environmental Medicine
PROC: 4A10X4Z Monitoring of Central Nervous Electrical Activity, External Approach (ICD-10-PCS; principal; 2023-04-06)
DX: A41.9 Sepsis, unspecified organism (principal); E43 Unspecified severe protein-calorie malnutrition; I50.41 Acute combined systolic (congestive) and diastolic (congestive) heart failure; J96.01 Acute respiratory failure with hypoxia; E87.1 Hypo-osmolality and hyponatremia; I13.0 Hypertensive heart and chronic kidney disease with heart failure and stage 1 through stage 4 chronic kidney disease, or unspecified chronic kidney disease; I48.20 Chronic atrial fibrillation, unspecified; L97.929 Non-pressure chronic ulcer of unspecified part of left lower leg with unspecified severity; Z68.41 Body mass index [BMI] 40.0-44.9, adult; E87.6 Hypokalemia; D64.9 Anemia, unspecified; E83.51 Hypocalcemia; E88.09 Other disorders of plasma-protein metabolism, not elsewhere classified; F32.9 Major depressive disorder, single episode, unspecified; I25.10 Atherosclerotic heart disease of native coronary artery without angina pectoris; N18.9 Chronic kidney disease, unspecified; I87.8 Other specified disorders of veins; G89.4 Chronic pain syndrome; F32.A Depression, unspecified; M19.90 Unspecified osteoarthritis, unspecified site; Z79.01 Long term (current) use of anticoagulants; Z74.01 Bed confinement status; Z88.2 Allergy status to sulfonamides
CPT/HCPCS: 36415; 71045; 80048; 80053; 81000; 82962; 83605; 83735; 83880; 84100; 84484; 85025; 85651-TC; 87040; 87081; 87086; 93005; 93923; 94640; 94760; 95816; 96365; 96375; 97110-GP; 97163-GP; 97530-GP; 99285; G0378; J0696; J1885; J1940; J2060; J2405; J3480; J7050; Q0162